=== PATIENT | female | born 1940 | race African-American/Black ===

== ENCOUNTER 2016-11-05 13:11 | Inpatient (IN) | payer MEDICARE, MEDICAID ==
[~2016-11-05] VITALS: Ht 165.1 cm; Wt 113.4 kg
[~2016-11-05 13:11] MED LIST: ACETAMINOPHEN-1 EAC1 GT; ACETAMINOPHEN650 M2 GT; AMIODARONE HCL400 M1 GT; BACLOFEN10 MG GT; BISACODYL5 MG RC; CALCIUM500 M3 GT; CARBAMAZEP200 MG/10 GT; COLACE100 MG GT; DAILY VITAMIN1 EAC4 GT; DILAUDID 11 MG/1 ML IJ; DILAUDID2 MG SUBQ; FOLIC ACID1 MG GT; GABAPENTIN100 MG GT; HEPARIN SO1000 UNIT3 SQ; HYDRALAZINE HCL10 MG GT; ISOSOURCE 1.51000 M1 GT; KLONOPIN0.5 MG GT; LACTULOSE20 GM/301 GT; LEVOTHYROXINE50 MCG GT; LIPITOR20 MG GT; LYRICA50 MG GT; LYRICA50 MG ORAL; MAALOX MAXIMUM355 M1 GT; METOPROLOL TART25 MG ORAL; MINERALS GT; MIRTAZAPINE15 MG GT; MOM30 ML ORAL; MULTIVIT GT; MULTIVITAMINS1 EAC8 GT; NEURONTIN800 MG GT; NOVOLOG100 UNIT/3 SUBQ; PEPCID20 MG GT; PERCOCET 10-321 EACH GT; PROMOD946 ML GT; ROBITUSSIN100 MG/52 ORAL; SENNA8.6 M2 GT; TEGRETOL200 MG GT; TRAMADOL HCL50 MG GT; TRAZODONE HCL100 MG GT; ZANTAC150 MG GT; [UNRECOGNIZED DRUG - CODE] SQ; viscous lidocaine
[2016-11-05 13:30] VITALS: BP 115/95
[2016-11-05 14:00] VITALS: BP 97/58
[2016-11-05 14:40] LABS: BASOPHILS % (AUTO) 0.6 % (0.0-2.0); EOSINOPHILS % (AUTO) 3.2 % (0.0-3.0); LYMPHOCYTES % (AUTO) 9.1 % (20.0-45.0); MEAN CORPUSCULAR HEMOGLOBIN 30.9 PG (27.0-31.0); MEAN CORPUSCULAR HGB CONC 31.3 G/DL (32.0-36.0); MEAN CORPUSCULAR VOLUME 99 FL (80-99); MEAN PLATELET VOLUME 6.5 FL (6.5-10.1); MONOCYTES % (AUTO) 12.2 % (1.0-10.0); PLATELET COUNT 159 K/UL (150-450); RED BLOOD COUNT 4.11 M/UL (4.20-5.40); RED CELL DISTRIBUTION WIDTH 13.8 % (11.6-14.8); WHITE BLOOD COUNT 8.5 K/UL (4.8-10.8)
[2016-11-05 14:50] LABS: INR 1.1 (0.9-1.1); PROTHROMBIN TIME 11.4 SEC (9.30-11.50)
[2016-11-05 14:56] LABS: ALANINE AMINOTRANSFERASE 6 U/L (3-33); ALBUMIN/GLOBULIN RATIO 1.3 (1.0-2.7); ALCOHOL < 10 mg/dL; ANION GAP 18 (5-15); ASPARTATE AMINO TRANSFERASE 11 U/L (5-40); CALCIUM 8.8 mg/dL (8.6-10.2); CARBON DIOXIDE 23 mEQ/L (20-30); CHLORIDE 98 mEQ/L (98-107); CHOLESTEROL 189 mg/dL (< 200); CHOLESTEROL/HDL RATIO 4.2 (3.3-4.4); HEMOLYSIS 14; LDL CHOLESTEROL (CALC.) 92 mg/dL (60-99); POTASSIUM 4.1 mEQ/L (3.4-4.9); SODIUM 139 mEQ/L (135-145); TROPONIN I < 0.30 ng/mL (<=0.30)
[2016-11-05 15:05] LABS: APPEARANCE,URINE SLIGHTLY CLOUDY; KETONES,URINE 1+ (NEGATIVE); LEUKOCYTE ESTERASE ,URINE 3+ (NEGATIVE); NITRITE,URINE NEGATIVE (NEGATIVE); PH,URINE 8 (4.5-8.0); PROTEIN,URINE 3+ (NEGATIVE); UROBILINOGEN,URINE NORMAL MG/DL (0.0-1.0)
[2016-11-05 15:23] LABS: AMORPHOUS SEDIMENT,UR MODERATE /LPF; BACTERIA,URINE MANY /HPF; SQUAMOUS EPITHELIAL CELL,UR FEW /LPF (NONE/OCC); WBC,URINE 15-20 /HPF (0 - 2)
[2016-11-05] MEDS ORDERED: POTASSIUM CHLO20 ME1 GT (15:37)
[2016-11-05] MEDS ORDERED: MIRALAX17 G2 GT (15:37)
[2016-11-05] MEDS ORDERED: PRO-STAT LIQUID30 ML GT (15:37)
[2016-11-05] MEDS ORDERED: UTI-STAT L3875 MG/31 GT (15:37)
[2016-11-05] MEDS ORDERED: DILAUDID1 MG/1 ML SUBQ (15:37)
[2016-11-05] MEDS ORDERED: VITAMIN C500 M1 GT (15:37)
[2016-11-05] MEDS ORDERED: CYMBALTA30 MG GT (15:37)
[2016-11-05] MEDS ORDERED: CARBAMAZEPINE200 MG GT (15:37)
[2016-11-05] MEDS ORDERED: ASPIR 8181 MG GT (15:37)
[2016-11-05] MEDS ORDERED: BACLOFEN10 MG GT (15:37)
[2016-11-05] MEDS ORDERED: NORCO 10-325 T1 EACH GT (15:37)
[2016-11-05] MEDS ORDERED: ZOFRAN4 M1 GT (15:37)
[2016-11-05] MEDS ORDERED: FERROUS SULFAT325 MG GT (15:37)
[2016-11-05] MEDS ORDERED: CARAFATE1 G1 GT (15:37)
[2016-11-05] MEDS ORDERED: PERCOCET 10-321 EACH GT (15:37)
[2016-11-05] MEDS ORDERED: METOPROLOL TART25 MG GT (15:37)
[2016-11-05] MEDS ORDERED: IPRATROPIU0.2 MG/1 M HHN (15:37)
[2016-11-05] MEDS ORDERED: FOLIC ACID1 MG GT (15:37)
[2016-11-05 15:46] LABS: ERYTHROCYTE SEDIMENTATION RATE 80 MM/HR (0-30)
[2016-11-05] MEDS ORDERED: cefTRIAXone 1 GM in D5W 55 ML IVPB ONE (16:00)
--- NOTE | 2016-11-05 16:12 | Emergency Room Report ---
History of Present Illness General Chief Complaint: Stroke Symptoms Source: Medical Record, EMS Present Illness HPI Paramedics were called because of ALOC. Patient was minimally responsive and unable to respond to commands. Allegedly patient usually ambulatory. Accucheck in field normal. This occurred 1 hour prior to presentation here. No vomiting or fever. Patient with h/o seizure and stroke in past (per records). Alleged prior R weakness. Post G tube insertion. Diabetic. Unable to answer other questions. Allergies: Coded Allergies: LANSOPRAZOLE (Unverified Allergy, Severe, 01/11/13) BROMFENAC (Verified Allergy, Unknown, 12/03/08) DICLOFENAC (Verified Allergy, Unknown, 12/03/08) FENOPROFEN (Verified Allergy, Unknown, 12/03/08) FLURBIPROFEN (Verified Allergy, Unknown, 12/03/08) IBUPROFEN (Verified Allergy, Unknown, 12/03/08) INDOMETHACIN (Verified Allergy, Unknown, 12/03/08) KETOROLAC (Verified Allergy, Unknown, 12/03/08) MISOPROSTOL (Verified Allergy, Unknown, 12/03/08) MORPHINE (Verified Allergy, Unknown, 12/03/08) NAPROXEN (Verified Allergy, Unknown, 12/03/08) PIROXICAM (Verified Allergy, Unknown, 12/03/08) SULINDAC (Verified Allergy, Unknown, 12/03/08) No Known Allergies (Verified , 12/03/08) Patient History Limited by: medical condition Past Medical History: see triage record, old chart reviewed Past Surgical History: pacemaker Social History Narrative SNF Reviewed Nursing Documentation: PMH: Agreed, PSxH: Agreed Nursing Documentation-PMH Past Medical History: No History, Except For Hx Cardiac Problems: Yes - CHF Hx Hypertension: Yes Hx Pacemaker: Yes Hx Asthma: Yes Hx COPD: Yes Hx Diabetes: Yes Hx Cancer: No Hx Gastrointestinal Problems: Yes - g tube GERD Hx Neurological Problems: Yes Hx Cerebrovascular Accident: Yes Hx Dementia: Yes Hx Seizures: Yes Hx Peripheral Neuropathy: Yes Hx Weakness: Yes - RIGHT SIDED Review of Systems All Other Systems: limited Physical Exam Vital Signs Date Time Temp Pulse Resp B/P Pulse Ox O2 Delivery O2 Flow Rate FiO2 11/05/16 13:18 98.4 72 16 97/52 96 Room Air Sp02 EP Interpretation: reviewed, normal General Appearance: no apparent distress, lethargic, Chronically Ill Head: normocephalic, atraumatic Eyes: bilateral eye PERRL, bilateral eye normal inspection ENT: moist mucus membranes - poor dentition Neck: supple Respiratory: lungs clear, normal breath sounds Cardiovascular #1: regular rate, rhythm Cardiovascular #2: 2+ radial (R) Gastrointestinal: normal inspection, normal bowel sounds, non tender, no mass, non-distended, overweight Musculoskeletal: back normal, other - decreased ROM Neurologic: DTRs symmetric - decreased, sensory intact, motor weakness - R>>L hardly able to lift R hand, able to grasp with L. Not move LE, other - lethargic Psychiatric: other - lethargic but looks towards examiner Skin: normal inspection, warm/dry Procedures Critical Care Time Critical Care Time Total Critical Care Time: 30 min bedside evaluation and treatment excludes procedures (EKG). Reason for critical care: code stroke, repeated neurologic evaluations Possible complications: hypotension, hypertension, ID, shock, arrhythmias, metabolic acidosis, end organ damage, respiratory failure. Interventions: CT, hydration, antibiotics, consultation with PMD and radiologist. Course: Patient with ALOC and R weakness, Code stroke called. Maintaining airway. CT negative. Due to improving mentation, h/o seizures and improving strength (review of records with R weakness prior), TPA not indicated. UTI - antibiotics indicated. Continued improvement with discussion with PMD and family. Admitted telemetry. Consultations: nursing staff, EMS, family, radiologist, PMD Performed by: Dr. Richards Tolerated well condition = serious Medical Decision Making Diagnostic Impression: Primary Impression: Altered mental status Qualified Codes: R40.4 - Transient alteration of awareness Additional Impressions: Residual R weakness UTI (urinary tract infection) Qualified Codes: N30.00 - Acute cystitis without hematuria ER Course Patient with ALOC with R weakness. DDx: CVA, seizure, electrolyte abnormality, medication excess, arrhythmia amongst others. Exam with R weakness. "CODE Stroke" called. Eval with CT, CXR, EKG, labs. Treatment with cardiac monitoring. CT and EKG unremarkable. Pyuria. Re-evaluation with patient more responsive. Still with R weakness. As improving mentation, not candidate for TPA. Consideration for seizure with Sunil 's paralysis, arrhythmia, UTI/sepsis. Improving mentation with treatment. Discussed with Dr. Edwards and family. Admit telemetry Dr. Edwards. Laboratory Tests Test 11/05/16 14:25 11/05/16 14:52 White Blood Count 8.5 K/UL (4.8-10.8) Red Blood Count 4.11 M/UL (4.20-5.40) L Hemoglobin 12.7 G/DL (12.0-16.0) Hematocrit 40.5 % (37.0-47.0) Mean Corpuscular Volume 99 FL (80-99) Mean Corpuscular Hemoglobin 30.9 PG (27.0-31.0) Mean Corpuscular Hemoglobin Concent 31.3 G/DL (32.0-36.0) L Red Cell Distribution Width 13.8 % (11.6-14.8) Platelet Count 159 K/UL (150-450) Mean Platelet Volume 6.5 FL (6.5-10.1) Neutrophils (%) (Auto) 75.0 % (45.0-75.0) Lymphocytes (%) (Auto) 9.1 % (20.0-45.0) L Monocytes (%) (Auto) 12.2 % (1.0-10.0) H Eosinophils (%) (Auto) 3.2 % (0.0-3.0) H Basophils (%) (Auto) 0.6 % (0.0-2.0) Erythrocyte Sedimentation Rate 80 MM/HR (0-30) H Prothrombin Time 11.4 SEC (9.30-11.50) Prothrombin Time INR 1.1 (0.9-1.1) PTT 27 SEC (23-33) Sodium Level 139 mEQ/L (135-145) Potassium Level 4.1 mEQ/L (3.4-4.9) Chloride Level 98 mEQ/L (98-107) Carbon Dioxide Level 23 mEQ/L (20-30) Anion Gap 18 (5-15) H Blood Urea Nitrogen 19 mg/dL (7-23) Creatinine 1.0 mg/dL (0.5-0.9) H Estimate Glomerular Filtration Rate mL/min (>60) Glucose Level 110 mg/dL (74-106) H Calcium Level 8.8 mg/dL (8.6-10.2) Magnesium Level 2.0 mg/dL (1.7-2.5) Total Bilirubin 0.3 mg/dL (0.0-1.2) Aspartate Amino Transferase (AST) 11 U/L (5-40) Alanine Aminotransferase (ALT) 6 U/L (3-33) Alkaline Phosphatase 137 U/L (35-104) H Total Creatine Kinase 28 U/L (26-140) Troponin I < 0.30 ng/mL (<=0.30) Total Protein 6.0 g/dL (6.6-8.7) L Albumin 3.4 g/dL (3.5-5.2) L Globulin 2.6 g/dL Albumin/Globulin Ratio 1.3 (1.0-2.7) Triglycerides Level 260 mg/dL (< 150) H Cholesterol Level 189 mg/dL (< 200) LDL Cholesterol 92 mg/dL (60-99) HDL Cholesterol 45 mg/dL (> 60) Cholesterol/HDL Ratio 4.2 (3.3-4.4) Thyroid Stimulating Hormone (TSH) 1.030 uIU/mL (0.300-4.500) Carbamazepine (Tegretol) Level 10.3 ug/mL (4.0-12.0) Serum Alcohol < 10 mg/dL Urine Color Yellow Urine Appearance Slightly cloudy Urine pH 8 (4.5-8.0) Urine Specific [place] 1.010 (1.005-1.035) Urine Protein 3+ (NEGATIVE) H Urine Glucose (UA) Negative (NEGATIVE) Urine Ketones 1+ (NEGATIVE) H Urine Occult Blood 2+ (NEGATIVE) H Urine Nitrite Negative (NEGATIVE) Urine Bilirubin Negative (NEGATIVE) Urine Urobilinogen Normal MG/DL (0.0-1.0) Urine Leukocyte Esterase 3+ (NEGATIVE) H Urine RBC 5-10 /HPF (0 - 2) H Urine WBC 15-20 /HPF (0 - 2) H Urine Squamous Epithelial Cells Few /LPF (NONE/OCC) Urine Amorphous Sediment Moderate /LPF (NONE) H Urine Bacteria Many /HPF (NONE) H Urine Opiates Screen Positive (NEGATIVE) H Urine Barbiturates Screen Negative (NEGATIVE) Phencyclidine (PCP) Screen Negative (NEGATIVE) Urine Amphetamines Screen Positive (NEGATIVE) H Urine Benzodiazepines Screen Negative (NEGATIVE) Urine Cocaine Screen Negative (NEGATIVE) Urine Marijuana (THC) Screen Negative (NEGATIVE) EKG Diagnostic Results Rate: normal Rhythm: NSR ST Segments: no acute changes Rhythm Strip Diag. Results EP Interpretation: yes Rhythm: NSR, no PVC's, no ectopy Chest X-Ray Diagnostic Results EP Interpretation: Yes Findings: no consolidation, no effusion, no pneumothorax, other - dilated loops of bowel Number of Views: 1 CT/MRI/US Diagnostic Results CT/MRI/US Diagnostic Results : Imaging Test Ordered: head Impression "normal" Last Vital Signs Date Time Temp Pulse Resp B/P Pulse Ox O2 Delivery O2 Flow Rate FiO2 11/05/16 16:50 96.6 68 18 117/66 97 Room Air Status: improved Disposition: ADMITTED INPATIENT Condition: Serious Referrals: TRES EDWARDS (PCP) Ayo Richards M.D. November 05, 2016 16:12
[2016-11-05] MEDS ORDERED: Bisacodyl EC 5mg tab ORAL PRN ×2 (16:15→22:22)
[2016-11-05] MEDS ORDERED: Ipratropium 0.02% Inh Soln 2.5ml UD HHN PRN (16:15)
[2016-11-05] MEDS ORDERED: Lactulose 20gm/30ml UDC GT PRN ×2 (16:15)
[2016-11-05] MEDS ORDERED: Norco 10mg/325mg tab GT PRN (16:15)
[2016-11-05] MEDS ORDERED: Docusate 100mg/10ml Liq GT PRN ×2 (16:30→22:17)
[2016-11-05 16:50] VITALS: BP 117/66
[2016-11-05] MEDS: NovoLOG Insulin Flexpen SUBQ SCH ×2 (17:30→21:00)
[2016-11-05] MEDS: carBAMazepine 200mg tab GT SCH ×2 (17:51→21:40)
[2016-11-05] MEDS: Sucralfate 1gm tab GT SCH ×2 (17:51→21:40)
[2016-11-05] MEDS ORDERED: Lyrica 50mg cap ORAL SCH (18:00)
[2016-11-05 20:00] VITALS: BP 152/114
[2016-11-05] MEDS ORDERED: Metoprolol 25mg tab GT SCH (21:00)
[2016-11-05] MEDS: Piperacillin/Tazobactam 3.375 GM in D5W 110 ML IVPB SCH ×2 (21:41→22:00)
[2016-11-05] MEDS: Heparin 5000 units/ml inj SUBQ SCH (21:46)
[2016-11-05] MEDS ORDERED: Docusate 100mg/10ml Liq ORAL PRN (21:53)
[2016-11-05] MEDS ORDERED: carBAMazepine 200mg tab ORAL SCH (21:53)
[2016-11-05] MEDS ORDERED: Metoprolol 25mg tab ORAL SCH (21:55)
[2016-11-05] MEDS ORDERED: Norco 10mg/325mg tab ORAL PRN (21:55)
[2016-11-05] MEDS ORDERED: Sucralfate 1gm tab ORAL SCH (22:14)
[2016-11-06] VITALS: BP 105/61
[2016-11-06 04:00] VITALS: BP 121/63
[2016-11-06] MEDS: NovoLOG Insulin Flexpen SUBQ SCH ×4 (06:00→21:19)
[2016-11-06] MEDS: Piperacillin/Tazobactam 3.375 GM in D5W 110 ML IVPB SCH ×3 (06:00→21:36)
[2016-11-06 07:55] VITALS: BP 125/68
[2016-11-06] MEDS ORDERED: Heparin 2000 units/Ns 1000ml INJ PRN (08:30)
[2016-11-06] MEDS ORDERED: Lidocaine 1% Plain 30 ml INJ PRN (08:30)
[2016-11-06] MEDS ORDERED: Sodium Bicarbonate 4% 2.4meq/5ml vial INJ PRN (08:30)
[2016-11-06] MEDS ORDERED: Lactulose 20gm/30ml UDC GT PRN (09:00)
[2016-11-06] MEDS: Ascorbic Acid 500mg tab GT SCH (10:16)
[2016-11-06] MEDS: Milk of Magnesia 30ml Ud GT SCH (10:16)
[2016-11-06] MEDS: Aspirin Baby 81mg GT SCH (10:16)
[2016-11-06] MEDS: Miralax 17gm pkt GT SCH (10:17)
[2016-11-06] MEDS: Ferrous Sulfate 300 MG/5 ML UDC ORAL SCH (10:17)
[2016-11-06] MEDS: Sucralfate 1gm tab GT SCH ×4 (10:17→21:17)
[2016-11-06] MEDS: KCl 10% 20 mEq/15ml liquid GT SCH (10:17)
[2016-11-06] MEDS: DULoxetine 30mg cap ORAL SCH (10:17)
[2016-11-06] MEDS: carBAMazepine 200mg tab GT SCH ×4 (10:18→21:18)
[2016-11-06] MEDS: Metoprolol 25mg tab GT SCH ×2 (10:18→21:17)
[2016-11-06] MEDS: Amiodarone 200mg tab GT SCH (10:18)
[2016-11-06] MEDS: Heparin 5000 units/ml inj SUBQ SCH ×3 (10:19→21:18)
[2016-11-06] MEDS: Dyna-Hex 2% Top Sol 8oz TOPIC SCH (12:04)
[2016-11-06 12:06] VITALS: BP 111/67
[2016-11-06 15:56] VITALS: BP 111/61
[2016-11-06] MEDS ORDERED: NS 275ml ONE (16:55)
[2016-11-06] MEDS ORDERED: NS Irrig 1000ml ONE (16:55)
[2016-11-06] MEDS ORDERED: Tubing IV Secondary IV ONE (16:55)
[2016-11-06] MEDS: Norco 10mg/325mg tab GT PRN (19:57)
[2016-11-06 20:00] VITALS: BP 130/69
--- NOTE | 2016-11-06 21:45 | History and Physical Report ---
DATE OF ADMISSION: 11/05/2016 CHIEF COMPLAINT: Encephalopathy, sepsis and urinary tract infection. HISTORY OF PRESENT ILLNESS: The patient is a pleasant 76-year-old female, well-known to me. She has a history of severe trigeminal neuralgia, stroke and hypertension. She has a history of conduction system disease status post pacemaker. She has a history of dysphagia. She was transferred from a nursing home facility with complaints of altered mental status. According to the nursing staff, the patient was poorly responsive and nonverbal at the dining room. She was brought to the emergency room. On evaluation there, CT scan of the head was negative. She was noted to have UTI. She was hydrated aggressively with reports of any fevers or chills. No seizures. PAST MEDICAL HISTORY: As above. PAST SURGICAL HISTORY: Includes a pacemaker. CURRENT MEDICATIONS: Reconciled and reviewed. ALLERGIES: Include diclofenac, Indocin, Prevacid, , morphine, naproxen, and sulindac. FAMILY HISTORY: Noncontributory. SOCIAL HISTORY: Negative for tobacco, ethanol, or drugs. REVIEW OF SYSTEMS: General: No fever or chills. HEENT: No headaches or visual changes. Cardiopulmonary: No chest pain or shortness of breath. Gastrointestinal: No nausea or vomiting. Genitourinary: No urgency or frequency. Musculoskeletal: No dependent swelling. No positive history of seizures. PHYSICAL EXAMINATION: VITAL SIGNS: Temperature 97.7 degrees, pulse 89, blood pressure 125/68, and respirations 18. GENERAL: The patient is a well-developed, in no apparent distress. She is awake, alert, and oriented x4. HEENT: Her pupils are equal, round, and reactive to light. Oropharynx is clear. NECK: Supple. HEART: Regular rate and rhythm. LUNGS: Clear. ABDOMEN: Soft, nontender and nondistended. EXTREMITIES: Without clubbing or cyanosis. The patient has right-sided weakness, which is chronic. LABORATORY DATA: White count 8, hemoglobin 12, hematocrit 40, and platelets 159,000. Sodium 139 and creatinine is 1. Potassium is 4.1. Troponin was negative. Coags normal. UA showed 15 to 20 WBCs. ASSESSMENT: This is an elderly female with a history of stroke, encephalopathy, trigeminal neuralgia, sepsis, urinary tract infection, seizure disorder and history of conduction system disease status post pacemaker. PLAN: IV antibiotics, aggressive fluid resuscitation, Neurologic consultation and Cardiology consultation. We will follow pending cultures. Continue DVT and stress ulcer prophylaxis. Plan of care was discussed with the patient as well as the patient's daughter. Omar Fournier M.D. DR: HETAL JOB#: [id number] CC:
[2016-11-07] VITALS: BP 108/60
[2016-11-07] MEDS: Norco 10mg/325mg tab GT PRN ×5 (00:16→20:33)
[2016-11-07 03:49] VITALS: BP 110/59
--- NOTE | 2016-11-07 05:00 | Progress Note ---
DATE: 11/06/2016 CARDIOLOGY PROGRESS NOTE SUBJECTIVE: The patient is more alert. Still not at her baseline, withdrawn in this regard. The patient has been pancultured and started on IV antibiotics and IV fluid hydration overnight. She remains afebrile. OBJECTIVE: VITAL SIGNS: Blood pressure 130/69, pulse 91, respiratory rate 20, and afebrile. Monitored rhythm, sinus. GENERAL: Awake and alert. HEENT: Mucous membranes dry. NECK: Supple. LUNGS: Clear. CARDIAC: Regular. Normal S1, S2. Fourth heart sound. ABDOMEN: Soft. EXTREMITIES: No edema, right-sided weakness mild left subclavian area has a small event recorder under the skin. LABORATORY DATA: TSH 1.0. IMPRESSION: 1. Urinary tract infection. 2. Sepsis. 3. Hypovolemia and dehydration. 4. Indwelling event recorded nonfunctional, stable cardiac rhythm. 5. Mild protein-calorie malnutrition. 6. Hypertensive heart disease. 7. Paroxysmal atrial fibrillation. PLAN: 1. Hydration. 2. Empiric antibiotics pending final cultures. 3. DVT prophylaxis. 4. Continue low-dose beta-regan, titrate based on clinical parameters. 5. Maintenance dose amiodarone for suppression of atrial tachyarrhythmias and suppression of atrial fibrillation. 6. Continue maintenance dose of levothyroxine. 7. No indication for pacemaker. No indication to explant event recorder at this time. Ayo Leone M.D. DR: LINA JOB#: [id number] CC:
[2016-11-07] MEDS: Piperacillin/Tazobactam 3.375 GM in D5W 110 ML IVPB SCH ×3 (05:43→22:13)
[2016-11-07] MEDS: NovoLOG Insulin Flexpen SUBQ SCH ×4 (06:02→21:00)
[2016-11-07 08:05] VITALS: BP 166/90
[2016-11-07] MEDS: Aspirin Baby 81mg GT SCH (08:59)
[2016-11-07] MEDS: DULoxetine 30mg cap ORAL SCH (08:59)
[2016-11-07] MEDS: carBAMazepine 200mg tab GT SCH ×4 (09:00→21:17)
[2016-11-07] MEDS: Ascorbic Acid 500mg tab GT SCH (09:00)
[2016-11-07] MEDS: Milk of Magnesia 30ml Ud GT SCH (09:00)
[2016-11-07] MEDS: Sucralfate 1gm tab GT SCH ×4 (09:00→21:09)
[2016-11-07] MEDS: Miralax 17gm pkt GT SCH (09:00)
[2016-11-07] MEDS: Ferrous Sulfate 300 MG/5 ML UDC ORAL SCH (09:01)
[2016-11-07] MEDS: Metoprolol 25mg tab GT SCH ×2 (09:01→21:10)
[2016-11-07] MEDS: KCl 10% 20 mEq/15ml liquid GT SCH (09:01)
[2016-11-07] MEDS: Heparin 5000 units/ml inj SUBQ SCH ×2 (09:02→21:19)
[2016-11-07] MEDS: Amiodarone 200mg tab GT SCH (09:02)
[2016-11-07] MEDS: Dyna-Hex 2% Top Sol 8oz TOPIC SCH (09:02)
--- NOTE | 2016-11-07 10:51 | Diagnostic Imaging Report ---
Indication: Shortness of breath Technique: One view of the chest Comparison: 07/16/2013 Findings: Monitor device again projects over the left chest. There is elevation left hemidiaphragm with atelectatic change of the left lung base. Lungs and pleural spaces are otherwise clear. The heart is borderline enlarged. The aorta is tortuous and ectatic Impression: No definite acute process. Findings as noted
[2016-11-07 11:23] VITALS: BP 144/78
--- NOTE | 2016-11-07 14:27 | Wound Care Consultation ---
Wound Assessment Wound Assessment #1: Wound Present on Admission: Yes New Wound: No Status Change of Wound: No Wound Location Body Site Modif: right Wound Location Body Site: trochanter Wound Type: scar Jhonatan Test: Does not Jhonatan Wound Thickness: Full Thickness - scar tissue Wound Length: 2.5 Wound Width: 2.0 Percent of Wound [place]/Red: 100 Wound Drainage Amount: None Wound Drainage Odor: None/Absent Tissue Surrounding Wound: Intact Wound General Appearance: Asymptomatic Wound Assessment #2: Wound Number: #2 Wound Present on Admission: Yes New Wound: No Status Change of Wound: No Wound Location Body Site Modif: right Wound Location Body Site: ischial tuberosity Wound Type: scar Jhonatan Test: Does not Jhonatan Wound Thickness: Full Thickness - scar tissue Wound Length: 2.0 Wound Width: 1.5 Percent of Wound [place]/Red: 100 Wound Drainage Amount: None Wound Drainage Odor: None/Absent Tissue Surrounding Wound: Intact Wound General Appearance: Asymptomatic, Reddened Wound Comment Full thickness scar tissue on right trochanter and right ischial tuberosity Recommendation -Keep clean and dry -Turn and reposition -Low air loss SPR mattress -Optimize nutrition -Offload both heels -Heel protector on both heels -Assess and f/u accordingly for any changes SAMUEL RODRIGUEZ RN November 07, 2016 14:27
[2016-11-07] MEDS ORDERED: Hydromorphone 0.5mg/0.5ml inj IVP PRN (15:15)
--- NOTE | 2016-11-07 15:15 | General Progress Note ---
Assessment/Plan Problem List: (1) Altered mental status (2) Hyponatremia ICD Codes: E87.1 - Hyponatremia SNOMED: 23288342 (3) Seizure disorder, secondary ICD Codes: G40.909 - Seizure disorder, secondary SNOMED: 889788790 (4) Sepsis ICD Codes: A41.9 - Sepsis SNOMED: 41966098 (5) UTI (urinary tract infection) ICD Codes: N39.0 - Urinary tract infection, site not specified SNOMED: 03911180 Qualifiers: Qualified Codes: N30.00 - Acute cystitis without hematuria Status: stable Assessment/Plan cont iv abx pain rx adjusted sz rx repeat tox screen- ?positive ampghetamines d/w pt poc Subjective ROS Limited/Unobtainable: No Constitutional: Reports: malaise, weakness HEENT: Reports: no symptoms Cardiovascular: Reports: no symptoms Respiratory: Reports: no symptoms Gastrointestinal/Abdominal: Reports: no symptoms Genitourinary: Reports: no symptoms Neurologic/Psychiatric: Reports: pre-existing deficit Endocrine: Reports: no symptoms Hematologic/Lymphatic: Reports: no symptoms Allergies: Coded Allergies: LANSOPRAZOLE (Unverified Allergy, Severe, 01/11/13) BROMFENAC (Verified Allergy, Unknown, 12/03/08) DICLOFENAC (Verified Allergy, Unknown, 12/03/08) FENOPROFEN (Verified Allergy, Unknown, 12/03/08) FLURBIPROFEN (Verified Allergy, Unknown, 12/03/08) IBUPROFEN (Verified Allergy, Unknown, 12/03/08) INDOMETHACIN (Verified Allergy, Unknown, 12/03/08) KETOROLAC (Verified Allergy, Unknown, 12/03/08) MISOPROSTOL (Verified Allergy, Unknown, 12/03/08) MORPHINE (Verified Allergy, Unknown, 12/03/08) NAPROXEN (Verified Allergy, Unknown, 12/03/08) PIROXICAM (Verified Allergy, Unknown, 12/03/08) SULINDAC (Verified Allergy, Unknown, 12/03/08) No Known Allergies (Verified , 12/03/08) All Systems: reviewed and negative except above Subjective c/o generalized pain. mental status back to baseline. no chest pain no sob. Objective Last 24 Hour Vital Signs Date Time Temp Pulse Resp B/P Pulse Ox O2 Delivery O2 Flow Rate FiO2 11/07/16 14:00 97.1 11/07/16 12:00 79 11/07/16 11:23 97.1 81 18 144/78 99 Room Air 11/07/16 09:01 94 166/90 11/07/16 08:05 97.3 94 18 166/90 100 Room Air 11/07/16 08:00 96 11/07/16 07:36 97 20 Room Air 21 11/07/16 04:00 68 11/07/16 03:49 98.1 66 18 110/59 90 Room Air 11/07/16 00:00 97.5 74 20 108/60 100 Room Air 21 11/07/16 00:00 70 11/06/16 21:17 91 130/69 11/06/16 20:00 97.7 91 20 130/69 100 Room Air 21 11/06/16 20:00 90 11/06/16 19:30 89 20 Room Air 21 11/06/16 16:00 77 11/06/16 15:56 99.0 75 20 111/61 99 Room Air Intake and Output 11/06/16 11/07/16 19:00 07:00 Intake Total 230.0 ml 335.0 ml Output Total 450 ml 600 ml Balance -220.0 ml -265.0 ml Intake Oral 120 ml Free Water 225 ml IV Total 110.0 ml 110.0 ml Output Urine Total 450 ml 600 ml # Bowel Movements 1 1 Laboratory Tests 11/07/16 10:00: Opiates Screen [Pending], Oxycodone Level [Pending], Blood Methadone Screen [ Pending], Blood Propoxyphene Screen [Pending], Blood Barbiturates Screen [ Pending], Phencyclidine (PCP) Screen [Pending], Amphetamines Screen [Pending], Benzodiazepines Screen [Pending], Blood Cocaine/Metabolite Screen [Pending], Marijuana (THC) Screen [Pending], Blood Drug Screen Comment [Pending] Height (Feet): 5 Height (Inches): 5.00 Weight (Pounds): 250 General Appearance: WD/WN, alert Neck: supple Cardiovascular: regular rhythm Respiratory/Chest: lungs clear Abdomen: normal bowel sounds, non tender, soft Edema: no edema noted Arm (L), no edema noted Arm (R), no edema noted Leg (L), no edema noted Leg (R), no edema noted Pedal (L), no edema noted Pedal (R), no edema noted Generalized Neurologic: weatherization director II-XII grossly normal, motor weakness - left sided weakness TRES EDWARDS November 07, 2016 15:15
[2016-11-07 15:22] VITALS: BP 133/82
--- NOTE | 2016-11-07 17:02 | Cardiology Report ---
APPROVED REPORT EKG Measurement Heart [id number] Normal sinus rhythm Normal ECG
--- NOTE | 2016-11-07 17:45 | Consultation ---
DATE OF CONSULTATION: 11/07/2016 INFECTIOUS DISEASE CONSULTATION CONSULTING PHYSICIAN: Moris Jefferson M.D. PRIMARY ATTENDING: Omar Fournier M.D. This consult is for coverage of Dr. Woodruff. REASON FOR CONSULTATION: UTI. HISTORY OF PRESENT ILLNESS: This 76-year-old, female admitted on 11/05/2016 from custodial facility because of altered mental status, and the patient was nonresponsive. PAST MEDICAL HISTORY: Significant hypertension, diabetes mellitus, history of pacemaker, COPD, and dementia. ALLERGIES: Diclofenac, fenoprofen, ibuprofen, indomethacin, ketorolac, misoprostol, and morphine. MEDICATIONS: The patient is getting amiodarone, vitamin C, aspirin, Cymbalta, folic acid, Colace, carbamazepine, sucralfate, hydromorphone with Tylenol, levothyroxine, lactulose, heparin, metoprolol, ranitidine, Zosyn, gabapentin, and is on insulin. SOCIAL HISTORY: group home resident. No other history is obtainable per the patient. After admission, the patient had a PICC line placement. PHYSICAL EXAMINATION: VITAL SIGNS: Temperature 97.3, pulse 94, and blood pressure is 166/90. GENERAL APPEARANCE: In no acute distress, opens her eyes, nonverbal. HEAD AND NECK: [place] conjunctivae. HEART: S1 and S2. She has a pacemaker. LUNGS: Clear. ABDOMEN: Soft. EXTREMITIES: No edema. GENITOURINARY: Has López catheter. LABORATORY AND DIAGNOSTIC DATA: WBC 8.5, hemoglobin 12.7, hematocrit 40.5, and platelets are 159,000. Sodium 139, potassium 4.1, chloride 98, bicarbonate 23, BUN 19, creatinine 1, and glucose 110. Urine culture grew ESBL E. coli. CT scan of the head showed no acute change. The patient has right occipital craniotomy. Chest x-ray was also negative. IMPRESSION: 1. Urinary tract infection with Escherichia coli extended-spectrum beta-lactamase. 2. Altered mental status. 3. Diabetes mellitus. 4. Paroxysmal atrial fibrillation. 5. Hypertension. 6. Dementia. 7. Hypothyroidism. RECOMMENDATION: Continue with Zosyn. At the end of my exam, I thank Dr. Fournier for involving me in the care of this patient. Moris Jefferson M.D. DR: SAM JOB#: [id number] CC:
[2016-11-07 20:00] VITALS: BP 144/96
[2016-11-08] VITALS: BP 127/78
[2016-11-08] MEDS: Norco 10mg/325mg tab GT PRN ×3 (01:37→13:31)
--- NOTE | 2016-11-08 02:00 | Consultation ---
DATE OF CONSULTATION: 11/05/2016 CARDIOLOGY CONSULTATION: CONSULTING PHYSICIAN: Ayo Leone M.D. REQUESTING PHYSICIAN: Omar Fournier M.D. REASON FOR CONSULTATION: Altered mentation in the setting of implanted pacing device and cardiomyopathy. HISTORY OF PRESENT ILLNESS: This 76-year-old female residing at a residential facility was referred by the paramedics, because of unresponsiveness and transported to this emergency room, where she was assessed and evaluated, and Cardiology consultation subsequently requested. The patient was noted to be minimally responsive, unable to follow commands, and she has notably significant change in her baseline level of function. The patient was seen in the emergency room. She was started on IV fluids and pancultured. PAST MEDICAL HISTORY: 1. Hypertension with hypertensive heart disease. 2. Paroxysmal atrial fibrillation. 3. Conduction system disease of the heart. 4. Chronic diastolic congestive heart failure. 5. Left chest wall and planned to do event recorder now, nonfunctional. 6. Bronchospastic lung disease. 7. Type 2 diabetes mellitus. 8. Trigeminal neuralgia. 9. Chronic pain syndrome. 10. Gastroesophageal reflux disease. 11. Dysphagia with gastrostomy tube. 12. Cerebrovascular disease with right hemiparesis. 13. Peripheral neuropathy. 14. Seizure disorder. ALLERGIES: Allergies are multiple and include morphine, Naprosyn, misoprostol, Tapazole, ketorolac, Indocin, ibuprofen, diclofenac, and sulindac. FAMILY HISTORY: Noncontributory. MEDICATIONS: Prior to admission, reviewed and reconciled. SOCIAL HISTORY: Negative for smoking, alcohol, or substance abuse. REVIEW OF SYSTEMS: Cannot be obtained from the patient at this time. Available records are reviewed and pertinent data outlined above. It should also be noted that the patient has been known implanted recently event recorder in the left subclavian region. The device is no longer functional. It was implanted many years ago to assess for indication for permanent pacemaker with recent heart rate documented. The patient has remained with stable cardiac rhythm on antiarrhythmic therapy for a number of years. She has not had any documented indication for permanent pacemaker implant and the event recorder has not been removed and has not been in any need to do this due to her comorbidities. PHYSICAL EXAMINATION: GENERAL: Afebrile, blood pressure 97/52, pulse 72, and respiratory rate 16. HEENT: Temporal wasting. Pale conjunctivae. Oropharynx clear. Dry mucous membranes. NECK: Supple. LUNGS: Clear. No breast masses. Left chest wall palpable, event recorded. No skin breakdown. CARDIAC: Regular rhythm and rate. Normal S1 and S2 with a fourth heart sound. ABDOMEN: Soft and nontender. No guarding or rebound. EXTREMITIES: No edema. NEUROLOGIC: Right-sided weakness. G-tube intact. LABORATORY DATA: Sodium is 139, potassium 4.1, bicarbonate 22, BUN 19, creatinine 1, and glucose 110. Albumin 3.4. TSH 1.0. White count 8.5 and hemoglobin 12.7. Urinalysis with 15 to 20 white cells and many bacteria. Toxicology screen is notable for opiates and amphetamines. IMPRESSION: 1. Acute encephalopathy likely toxic and metabolic. 2. Urinary tract infection, possible sepsis. 3. Hypovolemia and dehydration. 4. Possible amphetamine use unlikely. 5. Paroxysmal atrial fibrillation, maintaining sinus rhythm. 6. Hypertensive heart disease. 7. Chronic diastolic congestive heart failure. 8. History of implanted event recorder, now nonfunctional. No indication previously occur or currently for permanent pacemaker implant. PLAN: 1. Panculture. 2. Hydration by IV route. 3. Empiric antibiotics. 4. Cautious use of gabapentin. 5. Seizure precautions. 6. Withdrawal precautions. 7. Repeat toxicology screen. 8. Maintenance dose amiodarone. 9. Titrate beta-regan. Ayo Leone M.D. DR: Leslee JOB#: [id number] CC: DARWIN
[2016-11-08 04:00] VITALS: BP 152/88
[2016-11-08] MEDS: Piperacillin/Tazobactam 3.375 GM in D5W 110 ML IVPB SCH (06:14)
[2016-11-08] MEDS: NovoLOG Insulin Flexpen SUBQ SCH ×3 (06:15→16:30)
--- NOTE | 2016-11-08 07:01 | Progress Note ---
DATE: 11/07/2016 CARDIOLOGY PROGRESS NOTE SUBJECTIVE: The patient is alert and interactive, still weak. OBJECTIVE: GENERAL: She is afebrile. VITAL SIGNS: Blood pressure 144/78 to 166/90, 80 to 97 heart rate, she is afebrile, and respiratory 18 to 20. NECK: Supple. LUNGS: Clear. CHEST WALL: With palpable recorder in the left subclavian region. CARDIAC: Regular rhythm and rate. Normal S1, S2 with a fourth heart sound. ABDOMEN: Soft. No edema. LABORATORY DATA: Urine toxicology screen was initially positive for amphetamines, but repeated is negative. IMPRESSION: 1. Urinary tract infection with sepsis. 2. Toxic and metabolic encephalopathy. 3. Hypovolemia and dehydration. 4. Paroxysmal atrial fibrillation. 5. Event recorder nonfunctional. No pacemaker. 6. Conduction system disease of the heart, asymptomatic. 7. Chronic diastolic congestive heart failure. 8. Hypertensive heart disease. 9. Chronic neuropathy with pain. PLAN: 1. Antimicrobials. 2. Maintenance dose amiodarone. 3. Continue current dose of beta-regan. 4. Seizure precautions and withdrawal precautions with high-dose gabapentin. 5. Consider additional IV fluid hydration if inadequate oral intake. Ayo Leone M.D. DR: Patrick JOB#: [id number] CC:
[2016-11-08 08:00] VITALS: BP 144/83
[2016-11-08] MEDS ORDERED: INVANZ1 GM IM (08:47)
[2016-11-08] MEDS: Ferrous Sulfate 300 MG/5 ML UDC ORAL SCH (09:29)
[2016-11-08] MEDS: Aspirin Baby 81mg GT SCH (09:30)
[2016-11-08] MEDS: DULoxetine 30mg cap ORAL SCH (09:30)
[2016-11-08] MEDS: KCl 10% 20 mEq/15ml liquid GT SCH (09:31)
[2016-11-08] MEDS: Amiodarone 200mg tab GT SCH (09:32)
[2016-11-08] MEDS: Metoprolol 25mg tab GT SCH (09:32)
[2016-11-08] MEDS: Milk of Magnesia 30ml Ud GT SCH (09:33)
[2016-11-08] MEDS: Dyna-Hex 2% Top Sol 8oz TOPIC SCH (09:33)
[2016-11-08] MEDS: Miralax 17gm pkt GT SCH (09:33)
[2016-11-08] MEDS: Sucralfate 1gm tab GT SCH ×2 (09:33→13:30)
[2016-11-08] MEDS: Ascorbic Acid 500mg tab GT SCH (09:33)
[2016-11-08] MEDS: Heparin 5000 units/ml inj SUBQ SCH (09:35)
[2016-11-08] MEDS: carBAMazepine 200mg tab GT SCH ×2 (09:37→13:30)
--- NOTE | 2016-11-08 10:34 | Infectious Diseases Prog Note ---
Assessment/Plan Assessment/Plan antibiotics : zosyn A 1. e.coli UTI 2. DM 3. HTN 4. atrial fibrillation P 1. continue zosyn 3 more days 2. will follow up cultures Subjective ROS Limited/Unobtainable: Yes Allergies: Coded Allergies: LANSOPRAZOLE (Unverified Allergy, Severe, 01/11/13) BROMFENAC (Verified Allergy, Unknown, 12/03/08) DICLOFENAC (Verified Allergy, Unknown, 12/03/08) FENOPROFEN (Verified Allergy, Unknown, 12/03/08) FLURBIPROFEN (Verified Allergy, Unknown, 12/03/08) IBUPROFEN (Verified Allergy, Unknown, 12/03/08) INDOMETHACIN (Verified Allergy, Unknown, 12/03/08) KETOROLAC (Verified Allergy, Unknown, 12/03/08) MISOPROSTOL (Verified Allergy, Unknown, 12/03/08) MORPHINE (Verified Allergy, Unknown, 12/03/08) NAPROXEN (Verified Allergy, Unknown, 12/03/08) PIROXICAM (Verified Allergy, Unknown, 12/03/08) SULINDAC (Verified Allergy, Unknown, 12/03/08) No Known Allergies (Verified , 12/03/08) Objective Vital Signs Last 24 Hour Vital Signs Date Time Temp Pulse Resp B/P Pulse Ox O2 Delivery O2 Flow Rate FiO2 11/08/16 09:32 100 144/83 11/08/16 08:00 98.2 100 19 144/83 100 Room Air 11/08/16 07:52 76 20 Room Air 11/08/16 04:47 98.0 11/08/16 04:00 98.0 88 19 152/88 99 Room Air 11/08/16 04:00 86 11/08/16 00:00 97.5 81 20 127/78 98 Room Air 11/08/16 00:00 63 11/07/16 21:10 88 144/96 11/07/16 20:00 97.3 88 21 144/96 98 Room Air 11/07/16 20:00 73 11/07/16 19:51 88 18 Room Air 21 11/07/16 16:00 82 11/07/16 15:22 97.3 91 18 133/82 100 Room Air 11/07/16 12:00 79 11/07/16 11:23 97.1 81 18 144/78 99 Room Air Height (Feet): 5 Height (Inches): 5.00 Weight (Pounds): 250 Respiratory/Chest: lungs clear Cardiovascular: normal rate, regular rhythm, no gallop/murmur Abdomen: soft, non tender, other - GT Extremities: no edema, other - left arm PICC Microbiology Date/Time Source Procedure Growth Status 11/05/16 15:00 Nasal Nares MRSA Culture - Final NO METHICILLIN RESISTANT STAPH AUREUS... Complete 11/05/16 14:52 Urine,Clean Catch Urine Culture - Final Escherichia Coli - Esbl Complete Laboratory Tests Test 11/07/16 18:30 Urine Opiates Screen Positive (NEGATIVE) H Urine Barbiturates Screen Negative (NEGATIVE) Phencyclidine (PCP) Screen Negative (NEGATIVE) Urine Amphetamines Screen Negative (NEGATIVE) Urine Benzodiazepines Screen Negative (NEGATIVE) Urine Cocaine Screen Negative (NEGATIVE) Urine Marijuana (THC) Screen Negative (NEGATIVE) CHAYA VELOZ Nov 08, 2016 10:34
[2016-11-08 12:00] VITALS: BP 141/96
[2016-11-08] MEDS ORDERED: Piperacillin/Tazobactam 3.375 GM in D5W 110 ML IVPB SCH (14:00)
--- NOTE | 2016-11-08 15:51 | Diagnostic Imaging Report ---
Indications: Right-sided weakness. History of seizure and stroke Technique: Spiral acquisitions obtained through the brain. Angled axial and coronal 5 x 5 mm slices were reconstructed. Total dose length product 1340 mGycm. CTDI vol(s) 70 mGy. Dose reduction achieved using automated exposure control Comparison: 11/05/2016 Findings: Again demonstrated is age-related enlargement of ventricles and extra-axial CSF spaces, as well as periventricular deep white matter ischemic change. No acute hemorrhage or edema. No mass effect nor midline shift. Again demonstrated is a right occipital craniotomy/craniectomy defect with overlying hardware. No underlying cerebellar encephalomalacia. Findings are unchanged when compared to the previous study. Impression: Chronic and age-related changes. Negative for acute intracranial bleed or mass effect or significant gear changer 3 days. Prior right occipital craniotomy/craniectomy The CT scanner at [facility] is accredited by the [employer] and the scans are performed using protocols designed to limit radiation exposure to as low as reasonably achievable to attain images of sufficient resolution adequate for diagnostic evaluation.
[2016-11-08 16:00] VITALS: BP 142/79
[2016-11-08] MEDS ORDERED: NS 275ml ONE (17:59)
[2016-11-08] MEDS ORDERED: Sterile Water Irrig 1000ml IRRIG ONE (17:59)
--- NOTE | 2016-11-08 22:30 | Discharge Summary ---
DATE OF ADMISSION: 11/05/2016 DATE OF DISCHARGE: 11/08/2016 ADMISSION DIAGNOSES: 1. Encephalopathy. 2. Sepsis. 3. History of stroke. 4. History of seizure disorder. 5. Urinary tract infection. DISCHARGE DIAGNOSES: 1. Encephalopathy. 2. Sepsis. 3. History of stroke. 4. History of seizure disorder. 5. Urinary tract infection. HOSPITAL COURSE: The patient is a very pleasant female who has had complaints of altered mental status. She was diagnosed with sepsis secondary to urinary tract infection. She received broad-spectrum antibiotics, which were later adjusted. Her mental status returned to normal after treatment of her urinary tract infection. On discharge, she was doing well. She will be discharged back to the senior living facility with five additional days of IV antibiotic therapy. DISCHARGE MEDICATIONS: Please see discharge medication list for discharge medications. DIET: Regular diet. ACTIVITY: Ad-rocky. Omar Fournier M.D. DR: RUBÉN JOB#: [id number] CC:
--- NOTE | 2016-11-08 23:45 | Progress Note ---
DATE: 11/08/2016 CARDIOLOGY PROGRESS NOTE: SUBJECTIVE: The patient is awake, alert, and at baseline mentation. Pain control is adequate with her baseline regimen. Monitored rhythm is sinus. No bradycardia. OBJECTIVE: VITAL SIGNS: Blood pressure is 142/79, pulse rate 89, respiratory rate 19, and afebrile. CHEST: Bilateral breath sounds. HEART: Regular rhythm and rate. Normal S1 and S2. Fourth heart sound. Left subclavian chest wall with no skin breakdown at the site of implanted loop recorder. ABDOMEN: Soft. EXTREMITIES: Without edema. NEUROLOGICAL: Baseline left weakness. IMPRESSION: 1. Toxic and metabolic encephalopathy, resolved. 2. Urinary tract infection with sepsis, improved. 3. Implanted loop recorder, nonfunctional. 4. Paroxysmal atrial fibrillation, maintaining sinus rhythm on amiodarone. 5. Hypertension, controlled. 6. Chronic diastolic congestive heart failure. PLAN: No indication for pacemaker. No plan to explant old loop recorder unless signs of infection in the future. Continue maintenance dose amiodarone. Titrate beta-regan based on clinical parameters. Continue anti-platelet and anti-lipid drugs, otherwise without change. Ayo Leone M.D. DR: Leslee JOB#: [id number] CC:
--- NOTE | 2016-11-11 08:28 | Diagnostic Imaging Report ---
Indications: Needs long-term IV access Technique: Ultrasound confirms patent compressible left brachial vein. Total sterile technique, including sterile probe cover and sterile gel, hat, mask,, sterile gown, large sterile drape, and preparation with 2% chlorhexidine utilized. Local anesthesia with 1% lidocaine. Under real-time ultrasound guidance, puncture brachial vein using 21-gauge needle, documented and archived, passage 0.018 guidewire under direct fluoroscopy, which was used to determine appropriate catheter length, exchange for 5 Argentine peel-away sheath. 5 Argentine Bard dual-lumen power PICC cut to 50 cm. It was inserted through the peel-away sheath. Peel-away sheath and guidewire removed. Catheter fixed to the skin. Both catheter ports aspirated and flushed. Patient tolerated procedure well, without immediate complication. Digital radiograph documents satisfactory catheter tip position, at the cavoatrial junction. Total fluoroscopy time 0.4 minutes. Total dose area product 5.2 dGycm2 Impression: Successful placement of left arm PICC under sonographic and fluoroscopic guidance, as described above.
--- NOTE | 2016-11-11 08:28 | Diagnostic Imaging Report ---
Indications: Altered level of consciousness Technique: Spiral acquisitions obtained through the brain. Angled axial and coronal 5 x 5 mm slices were reconstructed. Total dose length product 1390 mGycm. CTDI vol(s) 70 mGy. Dose reduction achieved using automated exposure control Comparison: 06/28/2013 Findings: There is age-related enlargement of ventricles and extra-axial CSF spaces. There is periventricular deep white matter chronic ischemic change. No acute hemorrhage or edema. No mass effect or midline shift. Otherwise normal car-white differentiation. There is evidence of prior right occipital craniotomy with a metal plate. This is new since previous study. No definite underlying cerebellar encephalomalacia, however. Maxillary sinus disease. Visualized orbits are unremarkable. Impression: Chronic and age-related changes. Negative for acute intracranial bleed or mass effect Interim right occipital craniotomy This agrees with the preliminary interpretation provided overnight by Dr. Andrade The CT scanner at [facility] is accredited by the [employer] and the scans are performed using protocols designed to limit radiation exposure to as low as reasonably achievable to attain images of sufficient resolution adequate for diagnostic evaluation.
== END 2016-11-08 18:00 | DRG 871 ==
LOC: EDBD 13:11 → EDUNIT# 13:11 → EMR 13:45 → 2E 14:35 → EDBEDREQ 14:59 → SDSOVERFLO 11-06 15:49 → 2E 11-06 15:51
PROC: B518ZZA Fluoroscopy of Superior Vena Cava, Guidance (ICD-10-PCS; principal; 2016-11-06)
PROC: 02HV33Z Insertion of Infusion Device into Superior Vena Cava, Percutaneous Approach (ICD-10-PCS; principal; 2016-11-06)
DX: A41.9 Sepsis, unspecified organism (principal); G92 Toxic encephalopathy; E44.1 Mild protein-calorie malnutrition; I48.0 Paroxysmal atrial fibrillation; I11.0 Hypertensive heart disease with heart failure; I50.32 Chronic diastolic (congestive) heart failure; E86.0 Dehydration; F03.90 Unspecified dementia, unspecified severity, without behavioral disturbance, psychotic disturbance, mood disturbance, and anxiety; R13.10 Dysphagia, unspecified; E11.42 Type 2 diabetes mellitus with diabetic polyneuropathy; I69.351 Hemiplegia and hemiparesis following cerebral infarction affecting right dominant side; N30.00 Acute cystitis without hematuria; Z68.41 Body mass index [BMI] 40.0-44.9, adult; G40.909 Epilepsy, unspecified, not intractable, without status epilepticus; G50.0 Trigeminal neuralgia; K21.9 Gastro-esophageal reflux disease without esophagitis; J44.9 Chronic obstructive pulmonary disease, unspecified; Z95.0 Presence of cardiac pacemaker; B96.20 Unspecified Escherichia coli [E. coli] as the cause of diseases classified elsewhere; Z93.1 Gastrostomy status
CPT/HCPCS: 36415; 36569; 70450; 71010; 76937; 80053; 80061; 80156; 80300; 80301; 80329; 81003; 82550; 82962; 83036; 83735; 84443; 84484; 85025; 85610; 85651; 85730; 87081; 87086; 87181; 93005; 94664; J1815

== ENCOUNTER 2017-11-24 14:54 | Inpatient (IN) | payer MEDICARE, BC, MEDICAID ==
[~2017-11-24] VITALS: Ht 172.7 cm; Wt 89.1 kg
[~2017-11-24 14:54] MED LIST changes: +ASPIR 8181 MG GT; +CARAFATE1 G1 GT; +CARBAMAZEPINE200 MG GT; +CYMBALTA30 MG GT; +DILAUDID1 MG/1 ML SUBQ; +FERROUS SULFAT325 MG GT; +INVANZ1 GM IM; +IPRATROPIU0.2 MG/1 M HHN; +METOPROLOL TART25 MG GT; +MIRALAX17 G2 GT; +NORCO 10-325 T1 EACH GT; +POTASSIUM CHLO20 ME1 GT; +PRO-STAT LIQUID30 ML GT; +UTI-STAT L3875 MG/31 GT; +VITAMIN C500 M1 GT; +Vancomycin 1.5gm/D5W 250ml 250 ML IVPB SCH; +ZOFRAN4 M1 GT
[2017-11-24] MEDS ORDERED: Lidocaine 1% MPF 10mg/ml 5ml ONE (15:10)
[2017-11-24] MEDS ORDERED: ZINC SULFATE220 M1 GT (15:24)
[2017-11-24] MEDS ORDERED: Nitroglycerin Subl 0.4mg tab SL PRN (15:30)
[2017-11-24] MEDS ORDERED: cloNIDine 0.2mg Tab ORAL ONE (15:30)
[2017-11-24 16:01] LABS: BASOPHILS % (AUTO) 1.4 % (0.0-2.0); EOSINOPHILS % (AUTO) 0.2 % (0.0-3.0); HEMATOCRIT 35.1 % (37.0-47.0); LYMPHOCYTES % (AUTO) 4.1 % (20.0-45.0); MEAN CORPUSCULAR VOLUME 98 FL (80-99); MONOCYTES % (AUTO) 10.7 % (1.0-10.0); NEUTROPHILS % (AUTO) 83.7 % (45.0-75.0); PLATELET COUNT 208 K/UL (150-450); RED BLOOD COUNT 3.57 M/UL (4.20-5.40); WHITE BLOOD COUNT 6.8 K/UL (4.8-10.8)
[2017-11-24 16:12] LABS: APPEARANCE,URINE SLIGHTLY CLOUDY; BILIRUBIN, URINE NEGATIVE (NEGATIVE); COLOR,URINE PALE YELLOW; GLUCOSE, URINE (UA) NEGATIVE (NEGATIVE); KETONES,URINE NEGATIVE (NEGATIVE); LEUKOCYTE ESTERASE ,URINE 3+ (NEGATIVE); NITRITE,URINE POSITIVE (NEGATIVE); PH,URINE 8 (4.5-8.0); PROTEIN,URINE 2+ (NEGATIVE); UROBILINOGEN,URINE NORMAL MG/DL (0.0-1.0)
[2017-11-24 16:14] LABS: CARBON DIOXIDE 25 MMOL/L (21-32); CHLORIDE 94 MMOL/L (98-107); POTASSIUM 4.1 MMOL/L (3.5-5.1); SODIUM 131 MMOL/L (136-145)
[2017-11-24 16:15] LABS: ANION GAP 12 mmol/L (5-15); BLOOD UREA NITROGEN 24 mg/dL (7-18); CALCIUM 9.3 MG/DL (8.5-10.1); CREATININE 1.3 MG/DL (0.55-1.30)
[2017-11-24] MEDS ORDERED: Lidocaine 1% MPF 10mg/ml 5ml IM ONE (16:15)
[2017-11-24 16:20] VITALS: BP 69/46
[2017-11-24 16:27] LABS: ALANINE AMINOTRANSFERASE 18 U/L (12-78); ALBUMIN/GLOBULIN RATIO 0.6 (1.0-2.7); ALKALINE PHOSPHATASE 155 U/L (46-116); ASPARTATE AMINO TRANSFERASE 20 U/L (15-37); BILIRUBIN,TOTAL 0.5 MG/DL (0.2-1.0); CKMB 0.6 NG/ML (0.0-3.6); CREATINE KINASE 25 U/L (26-308); PHOSPHORUS 3.4 MG/DL (2.5-4.9)
[2017-11-24 17:11] VITALS: BP 107/70
[2017-11-24] MEDS ORDERED: Ampicillin/Sulbactam Sod 3 GM in NS 110 ML IVPB ONE (18:15)
[2017-11-24 18:56] VITALS: BP 109/60
[2017-11-24 20:05] VITALS: BP 107/58
[2017-11-24 20:15] VITALS: BP 121/64
--- NOTE | 2017-11-24 21:18 | Emergency Room Report ---
History of Present Illness General Chief Complaint: Dyspnea/Respdistress Source: Patient, Medical Record Present Illness HPI Patient is a 77-year-old female brought in by her EMS after increased respiratory distress. Patient was noted to have prior history of a CVA and have bilateral lower extremity weakness. Patient was noted to be allergic to multiple medications. Patient had been the noted to be increasingly short of breath at her facility. Patient had been having increased congestion and cough. patient been subsequent started on supplemental oxygen by EMS.History is markedly limited by patient's mental status Allergies: Coded Allergies: LANSOPRAZOLE (Unverified Allergy, Severe, 01/11/13) BROMFENAC (Verified Allergy, Unknown, 12/03/08) DICLOFENAC (Verified Allergy, Unknown, 12/03/08) FENOPROFEN (Verified Allergy, Unknown, 12/03/08) FLURBIPROFEN (Verified Allergy, Unknown, 12/03/08) IBUPROFEN (Verified Allergy, Unknown, 12/03/08) INDOMETHACIN (Verified Allergy, Unknown, 12/03/08) KETOROLAC (Verified Allergy, Unknown, 12/03/08) MISOPROSTOL (Verified Allergy, Unknown, 12/03/08) MORPHINE (Verified Allergy, Unknown, 12/03/08) NAPROXEN (Verified Allergy, Unknown, 12/03/08) PIROXICAM (Verified Allergy, Unknown, 12/03/08) SULINDAC (Verified Allergy, Unknown, 12/03/08) Uncoded Allergies: NSAIDS (Allergy, Unknown, 11/24/17) Patient History Past Medical History: see triage record Reviewed Nursing Documentation: PMH: Agreed; PSxH: Agreed Nursing Documentation-PMH Past Medical History: No History, Except For Hx Cardiac Problems: Yes - CHF Hx Hypertension: Yes Hx Pacemaker: Yes Hx Asthma: Yes Hx COPD: Yes Hx Diabetes: Yes Hx Cancer: No Hx Gastrointestinal Problems: Yes - g tube GERD Hx Neurological Problems: Yes Hx Cerebrovascular Accident: Yes Hx Dementia: Yes Hx Seizures: Yes Hx Peripheral Neuropathy: Yes Hx Weakness: Yes - RIGHT SIDED Review of Systems All Other Systems: limited Physical Exam Vital Signs Date Time Temp Pulse Resp B/P (MAP) Pulse Ox O2 Delivery O2 Flow Rate FiO2 11/24/17 14:44 114 26 77/46 98 Non-Rebreather 15.0 11/24/17 15:42 100 11/24/17 16:20 97.0 97.0 General Appearance: Chronically Ill Head: atraumatic ENT: normal voice Neck: limited range of motion Respiratory: rales, rhonchi Cardiovascular #1: tachycardia, edema Gastrointestinal: other - gastrostomy, jejunostomy Genitourinary: no CVA tenderness Neurologic: responsive, motor weakness - bilateral lower extremity Medical Decision Making Diagnostic Impression: Primary Impression: Sepsis Additional Impression: Pneumonia ER Course Patient presented for fever. Differential diagnosis included wasn't limited to pneumonia, urinary tract infection, drug fever, allergic reaction, sepsis, cholecystitis, among others.Because of complexity of patient's case laboratory testing and imaging studies were ordered. The patient was noted to have initially difficulty with breathing. Patient was started on IV fluids. Initially patient was noted to be hypertensive which was spurious reading. The patient was started on IV fluids. The patient noted to have poor IV access. Central venous catheter was attempted in the right femoral area as well as in the the right internal jugular with ultrasound guidance without success. Eventually peripheral IV was establishedPatient was started on BiPAP due to respiratory difficulty. Dr. Omar Fournier I was contacted for inpatient management due to primary care physician Labs Test 11/24/17 15:30 11/24/17 16:00 11/24/17 18:05 White Blood Count 6.8 K/UL (4.8-10.8) Red Blood Count 3.57 M/UL (4.20-5.40) Hemoglobin 12.0 G/DL (12.0-16.0) Hematocrit 35.1 % (37.0-47.0) Mean Corpuscular Volume 98 FL (80-99) Mean Corpuscular Hemoglobin 33.7 PG (27.0-31.0) Mean Corpuscular Hemoglobin Concent 34.3 G/DL (32.0-36.0) Red Cell Distribution Width 13.0 % (11.6-14.8) Platelet Count 208 K/UL (150-450) Mean Platelet Volume 5.6 FL (6.5-10.1) Neutrophils (%) (Auto) 83.7 % (45.0-75.0) Lymphocytes (%) (Auto) 4.1 % (20.0-45.0) Monocytes (%) (Auto) 10.7 % (1.0-10.0) Eosinophils (%) (Auto) 0.2 % (0.0-3.0) Basophils (%) (Auto) 1.4 % (0.0-2.0) Sodium Level 131 MMOL/L (136-145) Potassium Level 4.1 MMOL/L (3.5-5.1) Chloride Level 94 MMOL/L (98-107) Carbon Dioxide Level 25 MMOL/L (21-32) Anion Gap 12 mmol/L (5-15) Blood Urea Nitrogen 24 mg/dL (7-18) Creatinine 1.3 MG/DL (0.55-1.30) Estimat Glomerular Filtration Rate mL/min (>60) Glucose Level 148 MG/DL (74-106) Calcium Level 9.3 MG/DL (8.5-10.1) Phosphorus Level 3.4 MG/DL (2.5-4.9) Magnesium Level 2.4 MG/DL (1.8-2.4) Total Bilirubin 0.5 MG/DL (0.2-1.0) Aspartate Amino Transf (AST/SGOT) 20 U/L (15-37) Alanine Aminotransferase (ALT/SGPT) 18 U/L (12-78) Alkaline Phosphatase 155 U/L (46-116) Total Creatine Kinase 25 U/L (26-308) Creatine Kinase MB 0.6 NG/ML (0.0-3.6) Creatine Kinase MB Relative Index 2.4 Troponin I 0.000 ng/mL (0.000-0.056) Pro-B-Type Natriuretic Peptide 735 pg/mL (0-125) Total Protein 7.7 G/DL (6.4-8.2) Albumin 3.0 G/DL (3.4-5.0) Globulin 4.7 g/dL Albumin/Globulin Ratio 0.6 (1.0-2.7) Urine Color Pale yellow Urine Appearance Slightly cloudy Urine pH 8 (4.5-8.0) Urine Specific [place] 1.010 (1.005-1.035) Urine Protein 2+ (NEGATIVE) Urine Glucose (UA) Negative (NEGATIVE) Urine Ketones Negative (NEGATIVE) Urine Occult Blood 3+ (NEGATIVE) Urine Nitrite Positive (NEGATIVE) Urine Bilirubin Negative (NEGATIVE) Urine Urobilinogen Normal MG/DL (0.0-1.0) Urine Leukocyte Esterase 3+ (NEGATIVE) Urine RBC 20-30 /HPF (0 - 2) Urine WBC 15-20 /HPF (0 - 2) Urine Squamous Epithelial Cells Few /LPF (NONE/OCC) Urine Bacteria Many /HPF (NONE) Lactic Acid Level 1.50 mmol/L (0.66-2.22) Last Vital Signs Date Time Temp Pulse Resp B/P (MAP) Pulse Ox O2 Delivery O2 Flow Rate FiO2 11/24/17 20:05 97.0 82 16 107/58 100 Bi-pap 15.0 80 97.0 Status: unchanged Disposition: ADMITTED INPATIENT Condition: Serious Referrals: Omar Fournier MD (PCP) Juan Stanley MD Nov 24, 2017 21:18
[2017-11-24] MEDS ORDERED: FLORANEX TABLE1 EAC1 GT (22:49)
[2017-11-24] MEDS ORDERED: Piperacillin/Tazobactam 3.375 GM in D5W 110 ML IVPB SCH (23:00)
[2017-11-24] MEDS ORDERED: NORCO 5-325 TA1 EACH GT (23:01)
[2017-11-24] MEDS ORDERED: OXYCODONE H5 MG/5 ML GT (23:12)
[2017-11-24] MEDS: Albuterol/Ipratropium 3ml neb HHN SCH (23:31)
[2017-11-24] MEDS ORDERED: ALBUTEROL2.5 MG/3 M INH (23:32)
[2017-11-24] MEDS ORDERED: ISOPTO TEARS15 ML OP (23:40)
[2017-11-24] MEDS ORDERED: LOPERAMIDE1 MG/5 ML GT (23:40)
[2017-11-24] MEDS ORDERED: ONDANSETRON HCL4 M1 GT (23:40)
[2017-11-25] VITALS: BP 132/60
[2017-11-25] MEDS: Vancomycin 1.5gm/D5W 250ml 250 ML IVPB SCH (00:55)
[2017-11-25] MEDS: Albuterol/Ipratropium 3ml neb HHN SCH ×6 (03:04→22:42)
[2017-11-25] MEDS: Piperacillin/Tazobactam 3.375 GM in D5W 110 ML IVPB SCH ×3 (03:31→18:53)
[2017-11-25 04:00] VITALS: BP 123/60
[2017-11-25] MEDS: Levothyroxine 25mcg tab GT SCH (06:17)
[2017-11-25 06:27] LABS: BASOPHILS % (AUTO) 1.1 % (0.0-2.0); EOSINOPHILS % (AUTO) 0.3 % (0.0-3.0); HEMATOCRIT 42.6 % (37.0-47.0); HEMOGLOBIN 13.7 G/DL (12.0-16.0); MEAN CORPUSCULAR VOLUME 102 FL (80-99); MONOCYTES % (AUTO) 10.4 % (1.0-10.0); NEUTROPHILS % (AUTO) 77.2 % (45.0-75.0); PLATELET COUNT 237 K/UL (150-450); RED BLOOD COUNT 4.19 M/UL (4.20-5.40); RED CELL DISTRIBUTION WIDTH 13.3 % (11.6-14.8); WHITE BLOOD COUNT 8.1 K/UL (4.8-10.8)
[2017-11-25 06:54] LABS: ALANINE AMINOTRANSFERASE 16 U/L (12-78); ALBUMIN 2.8 G/DL (3.4-5.0); ALBUMIN/GLOBULIN RATIO 0.6 (1.0-2.7); ALKALINE PHOSPHATASE 143 U/L (46-116); ANION GAP 12 mmol/L (5-15); ASPARTATE AMINO TRANSFERASE 22 U/L (15-37); BILIRUBIN,TOTAL 0.5 MG/DL (0.2-1.0); BLOOD UREA NITROGEN 27 mg/dL (7-18); CALCIUM 9.3 MG/DL (8.5-10.1); CARBON DIOXIDE 26 MMOL/L (21-32); CHLORIDE 95 MMOL/L (98-107); CREATININE 1.2 MG/DL (0.55-1.30); POTASSIUM 4.5 MMOL/L (3.5-5.1); SODIUM 133 MMOL/L (136-145)
[2017-11-25 08:00] VITALS: BP 116/56
[2017-11-25] MEDS ORDERED: carBAMazepine 200mg tab GT ONE (09:00)
[2017-11-25] MEDS: Amiodarone 200mg tab GT SCH (09:06)
[2017-11-25] MEDS: DULoxetine 30mg cap ORAL SCH (09:06)
[2017-11-25] MEDS: Zinc Sulfate 220mg cap GT SCH (09:06)
[2017-11-25] MEDS: Lactobacillus-GG tablet GT SCH (09:06)
[2017-11-25] MEDS: Docusate 100mg/10ml Liq GT SCH ×3 (09:06→18:06)
[2017-11-25] MEDS: Multivitamins W/Minerals 15 ML UDC GT SCH (09:06)
[2017-11-25] MEDS: Aspirin Baby 81mg ORAL SCH (09:07)
[2017-11-25] MEDS: Heparin 5000 units/ml inj SUBQ SCH ×2 (09:08→21:17)
[2017-11-25 12:00] VITALS: BP 110/65
--- NOTE | 2017-11-25 12:30 | Cardiology Report ---
APPROVED REPORT EKG Measurement Heart [id number] Normal sinus rhythm Right bundle branch block Abnormal ECG
--- NOTE | 2017-11-25 13:37 | Diagnostic Imaging Report ---
Indication: Shortness of breath Technique: XRAY Chest 1v Comparison: 11/05/2016 Findings: Rectangular device again projecting over the left chest, possible implantable loop recorder. Heart size and mediastinal contours are stable. Unchanged elevation of the left hemidiaphragm with atelectasis or scarring at the left base. Otherwise, no focal airspace consolidation. No pleural effusion or pneumothorax. There is osteopenia and degenerative change of the spine. No acute osseous abnormality. Impression: Elevation of the left hemidiaphragm with left basilar linear opacities, possibly atelectasis or scarring. Correlate clinically.
--- NOTE | 2017-11-25 13:39 | Diagnostic Imaging Report ---
Indication: Cough Technique: XRAY Chest 1v Comparison: 11/24/2017 Findings: Increased hazy left basilar opacities. There is persistent elevation of the left hemidiaphragm. Heart size and mediastinal contours are stable allowing for differences in patient rotation. There is no pneumothorax. No appreciable acute osseous abnormality. Impression: Increased left basilar hazy opacities compared to one day prior.
--- NOTE | 2017-11-25 14:30 | Consultation ---
DATE OF CONSULTATION: 11/25/2017 PULMONARY CONSULTATION CONSULTING PHYSICIAN: Chon Garcia M.D. REASON FOR CONSULTATION: Respiratory insufficiency and congestion. HISTORY OF PRESENT ILLNESS: The patient is a 77-year-old female brought in for increasing respiratory distress. The patient has known history of CVA and have increasing difficulty breathing, congestion, and cough. The patient was brought in with supplemental oxygen and was evaluated in the emergency room. The patient was noted to have sepsis and pneumonia. I was called to assist and evaluate further. The patient is fairly poor historian at present. The patient appears to be in significant distress. Overall, course was reviewed. The patient was started on IV antibiotics. Follow up x-rays have been ordered. Nebulized therapy has been ordered. The patient otherwise in no significant distress. The patient does have multiple allergies, as noted and outlined the patient's events were acute in nature. The patient is a Full Code. PAST MEDICAL HISTORY: Notable for CHF, hypertension, pacemaker, COPD/asthma, diabetes, reflux disease, CVA with right-sided weakness, seizure disorder, and dementia. MEDICATIONS: Noted and reviewed. ALLERGIES: Multiple. SOCIAL HISTORY: Resides in a detention facility. PHYSICAL EXAMINATION: GENERAL: Chronically ill-appearing female, mildly congested. VITAL SIGNS: Blood pressure 133/60, pulse 90, respiratory rate 17, and saturations 99%. The patient is currently on BiPAP, the patient on 40% FiO2. Temperature is 97.3. HEENT: Overall negative. NECK: Supple. Without jugular venous distention. LUNGS: Scattered rhonchi. Moderate air entry. CARDIAC: Normal S1 and S2 without murmurs, rubs, or gallops. Not tachycardic at present. ABDOMEN: Soft, nontender, nondistended. G-tube in place. EXTREMITIES: No cyanosis or clubbing. There is right-sided weakness. SKIN: Noted and reviewed. LABORATORY DATA: Reviewed. White count 8.1, hematocrit 42, and platelets of 237. Chemistry is noted and reviewed, sodium 133, BUN 27, creatinine 1.2. Albumin is 2.8. Urinalysis has 3+ blood, 20 to 30 red cells, and 15 to 20 white cells. IMPRESSION: 1. Pneumonia, possible retirement acquired, possible aspiration. 2. Reflux disease. 3. COPD/asthma. 4. Dementia. 5. CVA. 6. Concern for aspiration. 7. G-tube. 8. Concern for reflux aspiration. 9. Protein-calorie malnutrition. RECOMMENDATIONS: I agree with supportive care. IV antibiotics. Respiratory care. BiPAP management. Obtain arterial blood gases. Follow and recommend further. Taper BiPAP to off. Follow up x-ray and follow up for clearing, suction as needed, and monitor for further changes, interventions, and ongoing recommendations. Review of the medications. The patient is on DVT prophylaxis, which appears to be adequate at present. Chon Garcia M.D. DR: MIRIAN JOB#: [id number] CC:
[2017-11-25] MEDS: Gabapentin 300 MG/6 ML Soln GT SCH ×2 (14:53→21:14)
[2017-11-25 16:00] VITALS: BP 101/61
--- NOTE | 2017-11-25 17:00 | History and Physical Report ---
DATE OF ADMISSION: 11/24/2017 CHIEF COMPLAINT: Respiratory failure, sepsis, and possible pneumonia. HISTORY OF PRESENT ILLNESS: The patient is a 77-year-old female, well known to me. She has a prior history of stroke, paroxysmal atrial fibrillation, and hypertension. She has a history of severe trigeminal neuralgia. She has a history of dysphagia, status post G-tube placement, hip fracture. She was transferred from a [facility] facility after being noted congested and short of breath. On evaluation in the emergency room, the patient was immediately placed on BiPAP because of respiratory distress. She is currently awake. She had x-ray, evidence of pneumonia. She has been started on broad-spectrum IV antibiotic therapy. She is now admitted for further evaluation and care. PAST MEDICAL HISTORY: As above. PAST SURGICAL HISTORY: Includes rhizotomy and G-tube. CURRENT MEDICATIONS: Reconciled and reviewed. ALLERGIES: Include diclofenac, fenoprofen, ibuprofen, Indocin, Prevacid, misoprostol, morphine, naproxen, NSAIDs, and piroxicam. FAMILY HISTORY: Noncontributory. SOCIAL HISTORY: There is no known history of tobacco, ethanol, or drugs. REVIEW OF SYSTEMS: GENERAL: No fever or chills. HEENT: No headaches or visual changes. CARDIOPULMONARY: No chest pain. Positive shortness of breath, cough, and congestion. GASTROINTESTINAL: No nausea or vomiting. GENITOURINARY: No urgency or frequency. MUSCULOSKELETAL: No joint pain or swelling. NEUROLOGIC: Positive history of seizures and stroke. PHYSICAL EXAMINATION: VITAL SIGNS: Temperature 97.3, pulse 85, respirations 17, and blood pressure 123/60. GENERAL: The patient is a well-developed female, in no apparent distress. She is awake, alert, does not follow commands, respond to questions. HEENT: Her pupils are equal, round, and reactive to light. Sclerae anicteric. Oropharynx is clear. NECK: Supple. HEART: Regular rate and rhythm. LUNGS: Scattered rhonchi. ABDOMEN: Soft, nontender, nondistended. EXTREMITIES: Without clubbing or cyanosis. LABORATORY DATA: Showed sodium 131, potassium 4.1, chloride 94, bicarbonate 25, BUN 24, and creatinine 1.3. White count was 7, hemoglobin 12, hematocrit 35, and platelets of 208. UA showed 15 to 20 wbc's. ASSESSMENT: This is a pleasant female with complaints of shortness of breath secondary to pneumonia. 1. Pneumonia, possibly aspiration. 2. History of stroke. 3. History of seizure disorder. 4. Trigeminal neuralgia. 5. Hyponatremia. 6. History of paroxysmal atrial fibrillation. 7. History of GI bleed. PLAN: IV hydration. Continue BiPAP. We will check blood gas and wean as able. Broad-spectrum antibiotics. Continue respiratory care and suctioning. We will continue G-tube feeds. Monitor for signs and symptoms of aspiration. Plan of care was discussed with the patient at the bedside. Omar Fournier M.D. DR: MILVIA JOB#: [id number] CC:
[2017-11-25 20:00] VITALS: BP 117/56
[2017-11-26] VITALS: BP 111/60
[2017-11-26] MEDS: Vancomycin 1.5gm/D5W 250ml 250 ML IVPB SCH (01:18)
[2017-11-26] MEDS: Albuterol/Ipratropium 3ml neb HHN SCH ×6 (02:21→23:00)
[2017-11-26] MEDS: Piperacillin/Tazobactam 3.375 GM in D5W 110 ML IVPB SCH ×3 (03:19→20:02)
[2017-11-26 04:00] VITALS: BP 107/59
[2017-11-26] MEDS: Gabapentin 300 MG/6 ML Soln GT SCH ×3 (06:12→21:56)
[2017-11-26] MEDS: Levothyroxine 25mcg tab GT SCH (06:13)
--- NOTE | 2017-11-26 07:46 | Pulmonology Progress Note ---
Assessment/Plan Assessment/Plan IMPRESSION: 1. Pneumonia, possible [facility] acquired, possible aspiration. 2. Reflux disease. 3. COPD/asthma. 4. Dementia. 5. CVA. 6. Concern for aspiration. 7. G-tube. 8. Concern for reflux aspiration. 9. Protein-calorie malnutrition. PLAN care as is imaging slightly worse pulmonary hygiene BIPAP PRN oxygen and titrate monitor for change check culture gt feeds aspiration precautions impression, plan, and exam edited and reviewed in detail care discussed with RN Subjective Allergies: Coded Allergies: LANSOPRAZOLE (Unverified Allergy, Severe, 01/11/13) BROMFENAC (Verified Allergy, Unknown, 12/03/08) DICLOFENAC (Verified Allergy, Unknown, 12/03/08) FENOPROFEN (Verified Allergy, Unknown, 12/03/08) FLURBIPROFEN (Verified Allergy, Unknown, 12/03/08) IBUPROFEN (Verified Allergy, Unknown, 12/03/08) INDOMETHACIN (Verified Allergy, Unknown, 12/03/08) KETOROLAC (Verified Allergy, Unknown, 12/03/08) MISOPROSTOL (Verified Allergy, Unknown, 12/03/08) MORPHINE (Verified Allergy, Unknown, 12/03/08) NAPROXEN (Verified Allergy, Unknown, 12/03/08) PIROXICAM (Verified Allergy, Unknown, 12/03/08) SULINDAC (Verified Allergy, Unknown, 12/03/08) Uncoded Allergies: NSAIDS (Allergy, Unknown, 11/24/17) Subjective improved off BIPAP on NC oxygen Objective Last 24 Hour Vital Signs Date Time Temp Pulse Resp B/P (MAP) Pulse Ox O2 Delivery O2 Flow Rate FiO2 11/26/17 06:51 107 18 99 Nasal Cannula 2.0 28 11/26/17 06:46 28 11/26/17 06:46 99 16 98 Nasal Cannula 2.0 28 11/26/17 04:00 99.8 103 20 107/59 98 Nasal Cannula 2.0 99.8 11/26/17 04:00 107 11/26/17 02:43 103 20 100 Nasal Cannula 2.0 28 11/26/17 02:33 99 18 100 Nasal Cannula 2.0 28 11/26/17 02:33 28 11/26/17 00:00 99.9 113 20 111/60 97 Nasal Cannula 2.0 99.9 11/26/17 00:00 114 11/25/17 23:01 98 20 100 Nasal Cannula 2.0 28 11/25/17 22:43 28 11/25/17 22:42 106 18 100 Nasal Cannula 2.0 28 11/25/17 20:00 115 11/25/17 20:00 99.9 115 18 117/56 100 Nasal Cannula 2.0 99.9 11/25/17 19:29 104 20 99 Nasal Cannula 2.0 28 11/25/17 19:20 28 11/25/17 19:20 103 18 97 Nasal Cannula 2.0 28 11/25/17 19:19 107 18 98 11/25/17 16:30 105 22 98 11/25/17 16:00 99.6 109 18 101/61 100 Nasal Cannula 2.0 99.6 11/25/17 16:00 2.0 11/25/17 16:00 101 11/25/17 15:55 102 22 100 Nasal Cannula 2.0 28 11/25/17 15:41 28 11/25/17 15:41 101 20 93 Nasal Cannula 2.0 28 11/25/17 14:46 100 16 97 11/25/17 14:15 100 16 95 11/25/17 12:32 90 16 96 Facial 40 11/25/17 12:00 40 11/25/17 12:00 98.2 98 19 110/65 100 Bi-pap 40 98.2 11/25/17 12:00 95 11/25/17 11:24 97 16 100 Bi-pap 40 11/25/17 11:14 95 17 98 Bi-pap 40 11/25/17 11:14 95 18 98 Facial 40 11/25/17 11:14 40 11/25/17 08:56 95 16 94 Facial 40 11/25/17 08:00 40 11/25/17 08:00 99.8 93 17 116/56 95 Bi-pap 40 99.8 11/25/17 08:00 94 Intake and Output 11/25/17 11/26/17 19:00 07:00 Intake Total 223.75 ml 1002.5 ml Output Total 1000 ml Balance 223.75 ml 2.5 ml Intake Oral 100 ml IV Total 123.75 ml 442.5 ml Tube Feeding 560 ml Output Urine Total 500 ml Gastric Drainage Total 500 ml # Voids 2 Objective GENERAL: Chronically ill-appearing female, comfortable HEENT: Overall negative. NECK: Supple. Without jugular venous distention. LUNGS: some rhonchi. Moderate air entry. CARDIAC: Normal S1 and S2 without murmurs, rubs, or gallops. Not tachycardic at present. ABDOMEN: Soft, nontender, nondistended. G-tube in place. EXTREMITIES: No cyanosis or clubbing. There is right-sided weakness. SKIN: Noted and reviewed. Microbiology Date/Time Source Procedure Growth Status 11/24/17 15:30 Blood Blood Culture - Preliminary NO GROWTH AFTER 24 HOURS Resulted 11/24/17 15:00 Blood Blood Culture - Preliminary NO GROWTH AFTER 24 HOURS Resulted 11/24/17 16:00 Urine,Clean Catch Urine Culture - Preliminary Resulted Current Medications Medications (Trade) Dose Ordered Sig/Donell Route PRN Reason Start Time Stop Time Status Last Admin Dose Admin Albuterol/ Ipratropium (Albuterol/ Ipratropium) 3 ml Q4HRT HHN 11/24/17 23:00 11/29/17 22:59 11/26/17 06:50 Amiodarone HCl (Cordarone) 200 mg DAILY GT 11/25/17 09:00 12/25/17 08:59 11/25/17 09:06 Aspirin (ASA) 81 mg DAILY ORAL 11/25/17 09:00 12/25/17 08:59 11/25/17 09:07 Docusate Sodium (Colace) 100 mg TID GT 11/25/17 09:00 12/25/17 08:59 11/25/17 18:06 Duloxetine HCl (Cymbalta) 30 mg DAILY ORAL 11/25/17 09:00 12/25/17 08:59 11/25/17 09:06 Famotidine (Pepcid) 20 mg BID GT 11/25/17 18:00 12/25/17 17:59 11/25/17 18:06 Folic Acid (Folate) 1 mg DAILY GT 11/25/17 09:00 12/25/17 08:59 11/25/17 09:06 Gabapentin (Neurontin) 900 mg EVERY 8 HOURS GT 11/25/17 14:00 12/25/17 13:59 11/26/17 06:12 Heparin Sodium (Porcine) (Heparin 5000 units/ml) 5,000 units EVERY 12 HOURS SUBQ 11/25/17 09:00 12/25/17 08:59 11/25/17 21:17 Lactobacillus Acidophilus (Culturelle) 1 tab DAILY GT 11/25/17 09:00 12/25/17 08:59 11/25/17 09:06 Levothyroxine Sodium (Synthroid) 50 mcg DAILY@0630 GT 11/25/17 06:30 12/25/17 06:29 11/26/17 06:13 Multivitamins (Multivitamins W/ Minerals 15ml Liquid) 5 ml DAILY GT 11/25/17 09:00 12/25/17 08:59 11/25/17 09:06 Piperacillin Sod/ Tazobactam Sod 3.375 gm/Dextrose 110 ml @ 27.5 mls/hr 0300,1100,1900 IVPB 11/25/17 03:00 12/02/17 02:59 11/26/17 03:19 Vancomycin HCl (Vanco rx to dose) 1 ea DAILY PRN MISC Per rx protocol 11/24/17 22:45 12/24/17 22:44 Vancomycin HCl/ Dextrose 250 ml @ 167 mls/hr Q24H IVPB 11/25/17 01:00 11/30/17 00:59 11/26/17 01:18 Zinc Sulfate (Zinc Sulfate) 220 mg DAILY GT 11/25/17 09:00 12/25/17 08:59 11/25/17 09:06 Chon Garcia MD Nov 26, 2017 07:46
[2017-11-26 08:00] VITALS: BP 110/59
[2017-11-26] MEDS: Docusate 100mg/10ml Liq GT SCH ×3 (08:39→17:13)
[2017-11-26] MEDS: Lactobacillus-GG tablet GT SCH (08:39)
[2017-11-26] MEDS: DULoxetine 30mg cap ORAL SCH (08:39)
[2017-11-26] MEDS: Aspirin Baby 81mg ORAL SCH (08:39)
[2017-11-26] MEDS: Zinc Sulfate 220mg cap GT SCH (08:39)
[2017-11-26] MEDS: Amiodarone 200mg tab GT SCH (08:39)
[2017-11-26] MEDS: Multivitamins W/Minerals 15 ML UDC GT SCH (08:40)
[2017-11-26] MEDS: Heparin 5000 units/ml inj SUBQ SCH ×2 (08:45→21:59)
--- NOTE | 2017-11-26 09:15 | General Progress Note ---
Assessment/Plan Problem List: (1) Aspiration pneumonia ICD Codes: J69.0 - Pneumonitis due to inhalation of food and vomit SNOMED: 524858856 (2) Fever (3) Seizure ICD Codes: R56.9 - Seizure SNOMED: 38670966 (4) Weakness ICD Codes: R53.1 - Weakness SNOMED: 33061507 (5) Altered mental status (6) Sepsis ICD Codes: A41.9 - Sepsis SNOMED: 75530745 Status: stable, progressing Assessment/Plan gt feeds resp care o2 iv abx monitor cxr pain rx skin care d/w dtr x 5 min Subjective ROS Limited/Unobtainable: No Constitutional: Reports: malaise, weakness HEENT: Reports: no symptoms Cardiovascular: Reports: no symptoms Respiratory: Reports: cough Gastrointestinal/Abdominal: Reports: difficulty swallowing Genitourinary: Reports: no symptoms Neurologic/Psychiatric: Reports: pre-existing deficit, seizure Endocrine: Reports: no symptoms Hematologic/Lymphatic: Reports: anemia Allergies: Coded Allergies: LANSOPRAZOLE (Unverified Allergy, Severe, 01/11/13) BROMFENAC (Verified Allergy, Unknown, 12/03/08) DICLOFENAC (Verified Allergy, Unknown, 12/03/08) FENOPROFEN (Verified Allergy, Unknown, 12/03/08) FLURBIPROFEN (Verified Allergy, Unknown, 12/03/08) IBUPROFEN (Verified Allergy, Unknown, 12/03/08) INDOMETHACIN (Verified Allergy, Unknown, 12/03/08) KETOROLAC (Verified Allergy, Unknown, 12/03/08) MISOPROSTOL (Verified Allergy, Unknown, 12/03/08) MORPHINE (Verified Allergy, Unknown, 12/03/08) NAPROXEN (Verified Allergy, Unknown, 12/03/08) PIROXICAM (Verified Allergy, Unknown, 12/03/08) SULINDAC (Verified Allergy, Unknown, 12/03/08) Uncoded Allergies: NSAIDS (Allergy, Unknown, 11/24/17) All Systems: reviewed and negative except above Subjective better today. off bipap. low grade temp. cxr with left sided infiltrate. Objective Last 24 Hour Vital Signs Date Time Temp Pulse Resp B/P (MAP) Pulse Ox O2 Delivery O2 Flow Rate FiO2 11/26/17 08:00 117 11/26/17 06:51 107 18 99 Nasal Cannula 2.0 28 6/19/18 06:46 28 6/18 06:46 99 16 98 Nasal Cannula 2.0 28 11/26/18 04:00 99.8 103 20 107/59 98 Nasal Cannula 2.0 99.8 18 04:00 107 618 02:43 103 20 100 Nasal Cannula 2.0 28 11/26/18 02:33 99 18 100 Nasal Cannula 2.0 28 18 02:33 28 18 00:00 99.9 113 20 111/60 97 Nasal Cannula 2.0 99.9 18 00:00 114 18 23:01 98 20 100 Nasal Cannula 2.0 28 18 22:43 28 18 22:42 106 18 100 Nasal Cannula 2.0 28 18 20:00 115 18 20:00 99.9 115 18 117/56 100 Nasal Cannula 2.0 99.9 18 19:29 104 20 99 Nasal Cannula 2.0 28 18 19:20 28 18 19:20 103 18 97 Nasal Cannula 2.0 28 18 19:19 107 18 98 18 16:30 105 22 98 18 16:00 99.6 109 18 101/61 100 Nasal Cannula 2.0 99.6 18 16:00 2.0 18 16:00 101 18 15:55 102 22 100 Nasal Cannula 2.0 28 18 15:41 28 18 15:41 101 20 93 Nasal Cannula 2.0 28 18 14:46 100 16 97 18/18 14:15 100 16 95 18/18 12:32 90 16 96 Facial 40 18 12:00 40 18 12:00 98.2 98 19 110/65 100 Bi-pap 40 98.2 18 12:00 95 18 11:24 97 16 100 Bi-pap 40 11/25/18 11:14 95 17 98 Bi-pap 40 18 11:14 95 18 98 Facial 40 11/25/17 11:14 40 Intake and Output 11/25/17 11/26/17 19:00 07:00 Intake Total 223.75 ml 1002.5 ml Output Total 1000 ml Balance 223.75 ml 2.5 ml Intake Oral 100 ml IV Total 123.75 ml 442.5 ml Tube Feeding 560 ml Output Urine Total 500 ml Gastric Drainage Total 500 ml # Voids 2 Laboratory Tests 11/26/17 08:25: Sodium Level [Pending], Potassium Level [Pending], Chloride Level [Pending], Carbon Dioxide Level [Pending], Blood Urea Nitrogen [Pending], Creatinine [ Pending], Estimat Glomerular Filtration Rate [Pending], Glucose Level [Pending] , Calcium Level [Pending], Total Bilirubin [Pending], Aspartate Amino Transf ( AST/SGOT) [Pending], Alanine Aminotransferase (ALT/SGPT) [Pending], Alkaline Phosphatase [Pending], Total Protein [Pending], Albumin [Pending], Globulin [ Pending] 11/26/17 09:05: White Blood Count [Pending], Red Blood Count [Pending], Hemoglobin [Pending], Hematocrit [Pending], Mean Corpuscular Volume [Pending], Mean Corpuscular Hemoglobin [Pending], Mean Corpuscular Hemoglobin Concent [Pending], Red Cell Distribution Width [Pending], Platelet Count [Pending], Mean Platelet Volume [ Pending], Neutrophils (%) (Auto) [Pending], Lymphocytes (%) (Auto) [Pending], Monocytes (%) (Auto) [Pending], Eosinophils (%) (Auto) [Pending], Basophils (%) (Auto) [Pending] Height (Feet): 5 Height (Inches): 8.00 Weight (Pounds): 190 General Appearance: WD/WN, alert Neck: supple Cardiovascular: normal rate, regular rhythm Respiratory/Chest: chest wall non-tender, lungs clear, normal breath sounds, no respiratory distress Abdomen: normal bowel sounds, non tender, soft, no organomegaly Edema: no edema noted Arm (L), no edema noted Arm (R), no edema noted Leg (L), no edema noted Leg (R), no edema noted Pedal (L), no edema noted Pedal (R), no edema noted Generalized Omar Fournier MD Nov 26, 2017 09:15
[2017-11-26] MEDS: Norco 5mg/325mg tab GT PRN ×4 (09:28→23:12)
[2017-11-26 09:40] LABS: ALANINE AMINOTRANSFERASE 22 U/L (12-78); ALBUMIN 2.2 G/DL (3.4-5.0); ALBUMIN/GLOBULIN RATIO 0.5 (1.0-2.7); ALKALINE PHOSPHATASE 133 U/L (46-116); ANION GAP 8 mmol/L (5-15); ASPARTATE AMINO TRANSFERASE 27 U/L (15-37); BILIRUBIN,TOTAL 0.7 MG/DL (0.2-1.0); BLOOD UREA NITROGEN 32 mg/dL (7-18); CALCIUM 8.4 MG/DL (8.5-10.1); CARBON DIOXIDE 28 MMOL/L (21-32); CHLORIDE 96 MMOL/L (98-107); CREATININE 1.1 MG/DL (0.55-1.30); POTASSIUM 3.6 MMOL/L (3.5-5.1); SODIUM 132 MMOL/L (136-145)
[2017-11-26 10:03] LABS: BASOPHILS % (AUTO) 0.4 % (0.0-2.0); EOSINOPHILS % (AUTO) 1.9 % (0.0-3.0); HEMATOCRIT 32.6 % (37.0-47.0); HEMOGLOBIN 10.8 G/DL (12.0-16.0); LYMPHOCYTES % (AUTO) 6.6 % (20.0-45.0); MEAN CORPUSCULAR VOLUME 98 FL (80-99); MONOCYTES % (AUTO) 7.7 % (1.0-10.0); NEUTROPHILS % (AUTO) 83.5 % (45.0-75.0); PLATELET COUNT 207 K/UL (150-450); RED BLOOD COUNT 3.31 M/UL (4.20-5.40); RED CELL DISTRIBUTION WIDTH 12.5 % (11.6-14.8); WHITE BLOOD COUNT 7.5 K/UL (4.8-10.8)
[2017-11-26 12:00] VITALS: BP 123/66
[2017-11-26 16:00] VITALS: BP 110/68
--- NOTE | 2017-11-26 16:00 | Consultation ---
DATE OF CONSULTATION: 11/26/2017 INFECTIOUS DISEASE CONSULTATION CONSULTING PHYSICIAN: Christel Woodruff M.D. REFERRING PHYSICIAN: Omar Fournier M.D. REASON FOR CONSULTATION: Pneumonia. HISTORY OF PRESENTING ILLNESS: This is a 77-year-old lady with history of CVA, atrial fibrillation, hypertension, severe trigeminal neuralgia, dysphagia, status post G-tube placement, and hip fracture, who [facility] from [facility] with congestion and shortness of breath. She was seen in [place] emergency room where she was found to have a pneumonia. An Infectious Diseases consultation has been obtained for antibiotics. PAST MEDICAL HISTORY: 1. History of CVA. 2. Atrial fibrillation. 3. History of congestive heart failure. 4. History of hypertension. 5. Status post pacemaker placement. 6. History of COPD. 7. History of asthma. 8. History of diabetes. 9. Seizure disorder. 10. Dementia. 11. Trigeminal neuralgia. 12. Dysphagia, status post G-tube placement. 13. Status post rhizotomy. SOCIAL HISTORY: No history of smoking, alcohol, or drug use. FAMILY HISTORY: Noncontributory. REVIEW OF SYSTEMS: Unable to obtain currently. MEDICATIONS: As an inpatient, she is on Neurontin, [place], Dulcolax, Pepcid, amiodarone, Cymbalta, Lactobacillus, folic acid, subcutaneous heparin, zinc sulfate, aspirin, docusate, multivitamin, levothyroxine, vancomycin, Zosyn, albuterol, and ipratropium. ALLERGIES: Bromfenac, diclofenac, fenoprofen, flurbiprofen, ibuprofen, indomethacin, ketorolac, lansoprazole, misoprostol, morphine, naproxen, piroxicam, and sulindac. PHYSICAL EXAMINATION: VITAL SIGNS: Temperature of 98, T-max of 99.9, pulse of 105, respiratory rate 20, blood pressure of 107/59, and O2 saturation of 98%. HEENT: Pupils equally reactive to light and accommodation. Mouth appears clean without thrush. NECK: Supple. No adenopathy. No JVD. CARDIOVASCULAR: Regular rate and rhythm. No murmurs. LUNGS: Clear to auscultation bilaterally. No crackles. No wheezes. ABDOMEN: Soft and nontender. No organomegaly. EXTREMITIES: No cyanosis, no clubbing, no edema. LABORATORY AND DIAGNOSTIC DATA: White count 7.5, hemoglobin 10.8, hematocrit 32.6, MCV 98, platelet count of 207,000, and neutrophils of 83%. Sodium 132, potassium 3.6, chloride 96, bicarb 28, BUN 32, creatinine 1.1, glucose 137, calcium 8.4. Total bilirubin 0.7. AST 27, ALT 22, and alkaline phosphatase 133. Total protein 6.7. Albumin 2.2. UA showing 15 to 20 white cells. Urine culture showing gram-negative rods. The 11/24/2017 blood cultures are negative. Chest x-ray showing increased left basal hazy opacities. ASSESSMENT: This is a 77-year-old lady with history of trigeminal neuralgia, atrial fibrillation, CVA, who comes in with, 1. Gram-negative urinary tract infection. 2. Hypertension. 3. COPD. 4. Dementia. 5. Possible aspiration pneumonia. PLAN: 1. Continue vancomycin and Zosyn. 2. We will order sputum for Gram stain and culture. 3. We will follow up cultures and adjust antibiotics accordingly. I would like to thank, Dr. Fournier, for this consultation. Christel Woodruff M.D. DR: SHANICE JOB#: [id number] CC: Omar Fournier M.D.
[2017-11-26] MEDS ORDERED: Metoprolol 25mg tab GT SCH ×2 (16:15→16:30)
[2017-11-26 20:00] VITALS: BP 107/55
[2017-11-26] MEDS: Metoprolol 25mg tab GT SCH (21:56)
[2017-11-27] VITALS: BP 111/56
[2017-11-27] MEDS: Vancomycin 1.5gm/D5W 250ml 250 ML IVPB SCH (00:56)
--- NOTE | 2017-11-27 02:45 | Consultation ---
DATE OF CONSULTATION: 11/25/2017 CARDIOLOGY CONSULTATION CONSULTING PHYSICIAN: Ayo Leone M.D. REQUESTING PHYSICIAN: Omar Fournier M.D. REASON FOR CONSULT: Conduction system disease of the heart with cardiac arrhythmias in the setting of respiratory failure and pneumonia. HISTORY OF PRESENT ILLNESS: This is a 77-year-old female. She has a longstanding history of cerebrovascular disease and chronic trigeminal neuralgia. She was noted to be congested at the [facility] facility and in respiratory distress. She was brought to the emergency room and was started on BiPAP support. She was also noted to have an abnormal radiograph suggesting acute pneumonia. I have been asked to assist with cardiovascular care. The patient has known history of hypertensive heart disease. She also has history of paroxysmal atrial fibrillation and is on amiodarone for suppression. The patient has an indwelling event recorder that was never removed, it is nonfunctional and failed to have revealed any signs of advanced conduction disease requiring a pacemaker. PAST MEDICAL HISTORY: Further notable for CVA, dementia, trigeminal neuralgia, dysphagia, gastrostomy tube, status post rhizotomy, hypertensive heart disease, paroxysmal atrial fibrillation, implanted event recorder, conduction system disease of the heart. MEDICATIONS: Reviewed and reconciled. ALLERGIES: Multiple and include fenoprofen, diclofenac, all nonsteroidals, morphine, misoprostol, and Prevacid. FAMILY HISTORY: Noncontributory. SOCIAL HISTORY: No recent history of smoking, alcohol, or substance abuse. REVIEW OF SYSTEMS: Not obtainable from the patient. Prior records are reviewed. Of note, recent echocardiogram revealed normal ejection fraction, concentric hypertrophy, and mild degenerative valve disease. PHYSICAL EXAMINATION: VITAL SIGNS: Blood pressure 117/56, pulse 115, respiratory rate 18, and temperature 99.9 degrees. On BiPAP support at times. Now on nasal cannula. LUNGS: Bilateral breath sounds with rhonchi. Some accessory muscle use. HEART: Regular rhythm. Rapid rate. Normal S1 and S2. ABDOMEN: Soft. G-tube intact. EXTREMITIES: No edema. NEUROLOGIC: With facial asymmetry. SKIN: Left chest wall with a small implanted device palpated under the skin. LABORATORY AND DIAGNOSTIC DATA: Chest x-ray reveals right middle lobe infiltrate. White count 8 and hemoglobin 13.7. Sodium 133, potassium 4.5, BUN 27, and creatinine 1.2. Albumin 2.8. ABG, pH 7.41, pCO2 of 41, and pO2 of 88. IMPRESSION: 1. Healthcare-acquired pneumonia. 2. Urinary tract infection. 3. Sepsis. 4. Secondary sinus tachycardia. 5. Paroxysmal atrial fibrillation. 6. Conduction system disease of the heart, asymptomatic. 7. History of implanted event recorder, now nonfunctional. 8. Hypertensive cardiomyopathy. 9. Trigeminal neuralgia with chronic pain. PLAN: 1. Antimicrobials. 2. Bronchodilators. 3. Respiratory hygiene. 4. BiPAP p.r.n. 5. Continue maintenance-dose amiodarone. 6. Maintain adequate hydration with saline. 7. DVT prophylaxis. 8. No plan for removal of event recorder. 9. Check thyroid panel. Ayo Leone M.D. DR: BRYSON JOB#: [id number] CC:
[2017-11-27] MEDS: Piperacillin/Tazobactam 3.375 GM in D5W 110 ML IVPB SCH ×3 (02:51→22:11)
--- NOTE | 2017-11-27 03:00 | Progress Note ---
DATE: 11/26/2017 CARDIOLOGY PROGRESS NOTE SUBJECTIVE: The patient remains with congestion off BiPAP. No respiratory distress. Nasal cannula. Monitored sinus rhythm and sinus tachycardia. OBJECTIVE: LUNGS: Coarse breath sounds. Scattered rhonchi. HEART: Regular rhythm and rate. Normal S1, S2. Fourth heart sound. ABDOMEN: Soft. G-tube intact. EXTREMITIES: No edema. LABORATORY DATA: Sodium 132, potassium 3.6, BUN 32, and creatinine 1.1. Albumin 3.2. White count 7.5, hemoglobin 10.8. IMPRESSION: 1. Healthcare-acquired pneumonia. 2. Dysphagia. 3. Hypertensive cardiomyopathy. 4. Paroxysmal atrial fibrillation. 5. Implanted loop recorder, nonfunctional. 6. Urinary tract infections. 7. Chronic pain due to trigeminal neuralgia. 8. Seizure disorder. 9. Cerebrovascular disease with dementia and dysphagia. 10. Severe protein-calorie malnutrition. PLAN: 1. Antimicrobials. 2. Bronchodilators. 3. Respiratory hygiene. 4. Oxygen supplementation. 5. Maintenance dose amiodarone. 6. Saline replacement. 7. Protein supplement by G-tube. 8. DVT prophylaxis. Ayo Leone M.D. DR: Patrick JOB#: [id number] CC:
[2017-11-27] MEDS: Albuterol/Ipratropium 3ml neb HHN SCH ×6 (03:21→23:00)
[2017-11-27] MEDS: Norco 5mg/325mg tab GT PRN ×5 (03:55→22:09)
[2017-11-27 04:00] VITALS: BP 116/60
[2017-11-27 05:25] LABS: BASOPHILS % (AUTO) 0.7 % (0.0-2.0); HEMATOCRIT 31.4 % (37.0-47.0); HEMOGLOBIN 10.5 G/DL (12.0-16.0); LYMPHOCYTES % (AUTO) 5.9 % (20.0-45.0); MEAN CORPUSCULAR VOLUME 99 FL (80-99); MONOCYTES % (AUTO) 6.5 % (1.0-10.0); NEUTROPHILS % (AUTO) 81.9 % (45.0-75.0); PLATELET COUNT 216 K/UL (150-450); RED BLOOD COUNT 3.18 M/UL (4.20-5.40); RED CELL DISTRIBUTION WIDTH 12.4 % (11.6-14.8)
[2017-11-27 05:40] LABS: ALANINE AMINOTRANSFERASE 31 U/L (12-78); ALBUMIN 2.2 G/DL (3.4-5.0); ALBUMIN/GLOBULIN RATIO 0.5 (1.0-2.7); ALKALINE PHOSPHATASE 144 U/L (46-116); ANION GAP 5 mmol/L (5-15); ASPARTATE AMINO TRANSFERASE 33 U/L (15-37); BILIRUBIN,TOTAL 0.6 MG/DL (0.2-1.0); BLOOD UREA NITROGEN 28 mg/dL (7-18); CALCIUM 8.6 MG/DL (8.5-10.1); CARBON DIOXIDE 30 MMOL/L (21-32); CHLORIDE 97 MMOL/L (98-107); CREATININE 0.9 MG/DL (0.55-1.30); POTASSIUM 3.1 MMOL/L (3.5-5.1); SODIUM 132 MMOL/L (136-145)
[2017-11-27] MEDS: Gabapentin 300 MG/6 ML Soln GT SCH ×3 (06:24→22:07)
[2017-11-27 08:00] VITALS: BP 124/59
--- NOTE | 2017-11-27 08:23 | General Progress Note ---
Assessment/Plan Problem List: (1) Aspiration pneumonia ICD Codes: J69.0 - Pneumonitis due to inhalation of food and vomit SNOMED: 195213199 (2) Fever (3) Seizure ICD Codes: R56.9 - Seizure SNOMED: 49079025 (4) Weakness ICD Codes: R53.1 - Weakness SNOMED: 31666179 (5) Altered mental status (6) Sepsis ICD Codes: A41.9 - Sepsis SNOMED: 26372825 Status: stable, progressing Assessment/Plan gt feeds resp care o2 iv abx monitor cxr pain rx skin care Subjective ROS Limited/Unobtainable: No Constitutional: Reports: no symptoms HEENT: Reports: no symptoms Cardiovascular: Reports: no symptoms Respiratory: Reports: cough, shortness of breath Gastrointestinal/Abdominal: Reports: difficulty swallowing Genitourinary: Reports: no symptoms Neurologic/Psychiatric: Reports: pre-existing deficit Endocrine: Reports: no symptoms Hematologic/Lymphatic: Reports: no symptoms Allergies: Coded Allergies: LANSOPRAZOLE (Unverified Allergy, Severe, 01/11/13) BROMFENAC (Verified Allergy, Unknown, 12/03/08) DICLOFENAC (Verified Allergy, Unknown, 12/03/08) FENOPROFEN (Verified Allergy, Unknown, 12/03/08) FLURBIPROFEN (Verified Allergy, Unknown, 12/03/08) IBUPROFEN (Verified Allergy, Unknown, 12/03/08) INDOMETHACIN (Verified Allergy, Unknown, 12/03/08) KETOROLAC (Verified Allergy, Unknown, 12/03/08) MISOPROSTOL (Verified Allergy, Unknown, 12/03/08) MORPHINE (Verified Allergy, Unknown, 12/03/08) NAPROXEN (Verified Allergy, Unknown, 12/03/08) PIROXICAM (Verified Allergy, Unknown, 12/03/08) SULINDAC (Verified Allergy, Unknown, 12/03/08) Uncoded Allergies: NSAIDS (Allergy, Unknown, 11/24/17) All Systems: reviewed and negative except above Subjective on and off bipap. trigeminal pain better controlled. ID, pulm and cards appreciated Objective Last 24 Hour Vital Signs Date Time Temp Pulse Resp B/P (MAP) Pulse Ox O2 Delivery O2 Flow Rate FiO2 11/27/17 08:00 98.3 84 20 124/59 100 Bi-pap 40 98.3 11/27/17 07:32 Nasal Cannula 11/27/17 07:30 84 18 99 Nasal Cannula 2.0 28 11/27/17 04:54 98.1 11/27/17 04:00 98.1 81 20 116/60 99 Bi-pap 40 98.1 11/27/17 04:00 89 11/27/17 03:55 97.6 11/27/17 03:27 85 18 99 Nasal Cannula 2.0 28 11/27/17 03:21 28 11/27/17 03:21 86 18 99 Nasal Cannula 2.0 28 11/27/17 00:00 75 11/27/17 00:00 97.6 78 20 111/56 99 Nasal Cannula 2.0 97.6 11/26/17 23:46 Nasal Cannula 11/26/17 23:46 77 18 99 Nasal Cannula 2.0 28 11/26/17 23:12 97.1 11/26/17 21:56 77 107/55 11/26/17 20:00 97.1 81 20 107/55 99 Nasal Cannula 2.0 97.1 11/26/17 20:00 77 11/26/17 19:33 77 18 99 Nasal Cannula 2.0 28 11/26/17 19:21 76 18 100 Nasal Cannula 2.0 28 11/26/17 19:21 28 11/26/17 18:15 98.0 11/26/17 17:13 110 112/69 11/26/17 16:00 98.8 110 19 110/68 99 Nasal Cannula 2.0 98.8 11/26/17 16:00 114 11/26/17 14:26 88 18 99 Nasal Cannula 2.0 28 11/26/17 14:19 89 16 100 Nasal Cannula 2.0 28 11/26/17 14:19 28 11/26/17 13:42 98.0 11/26/17 12:00 99.1 109 22 123/66 99 Nasal Cannula 2.0 99.1 11/26/17 12:00 104 11/26/17 10:42 105 20 99 Nasal Cannula 2.0 28 11/26/17 10:35 28 11/26/17 10:35 108 16 99 Nasal Cannula 2.0 28 11/26/17 09:28 98.0 Intake and Output 11/26/17 11/27/17 19:00 07:00 Intake Total 310.0 ml 1214.0 ml Output Total 400 ml 500 ml Balance -90.0 ml 714.0 ml Free Water 200 ml 100 ml IV Total 110.0 ml 554.0 ml Tube Feeding 560 ml Output Urine Total 400 ml 500 ml # Bowel Movements 4 2 Laboratory Tests 11/26/17 08:25: Sodium Level 132L, Potassium Level 3.6, Chloride Level 96L, Carbon Dioxide Level 28, Anion Gap 8, Blood Urea Nitrogen 32H, Creatinine 1.1, Estimat Glomerular Filtration Rate , Glucose Level 137H, Calcium Level 8.4L, Total Bilirubin 0.7, Aspartate Amino Transf (AST/SGOT) 27, Alanine Aminotransferase ( ALT/SGPT) 22, Alkaline Phosphatase 133H, Total Protein 6.7, Albumin 2.2L, Globulin 4.5, Albumin/Globulin Ratio 0.5L 11/26/17 09:25: White Blood Count 7.5, Red Blood Count 3.31L, Hemoglobin 10.8L, Hematocrit 32.6L , Mean Corpuscular Volume 98, Mean Corpuscular Hemoglobin 32.5H, Mean Corpuscular Hemoglobin Concent 33.0, Red Cell Distribution Width 12.5, Platelet Count 207, Mean Platelet Volume 5.1L, Neutrophils (%) (Auto) 83.5H, Lymphocytes (%) (Auto) 6.6L, Monocytes (%) (Auto) 7.7, Eosinophils (%) (Auto) 1.9, Basophils (%) (Auto) 0.4 11/27/17 04:38: Sodium Level 132L, Potassium Level 3.1L, Chloride Level 97L, Carbon Dioxide Level 30, Anion Gap 5, Blood Urea Nitrogen 28H, Creatinine 0.9, Estimat Glomerular Filtration Rate , Glucose Level 120H, Calcium Level 8.6, Total Bilirubin 0.6, Aspartate Amino Transf (AST/SGOT) 33, Alanine Aminotransferase ( ALT/SGPT) 31, Alkaline Phosphatase 144H, Total Protein 6.9, Albumin 2.2L, Globulin 4.7, Albumin/Globulin Ratio 0.5L, White Blood Count 8.0, Red Blood Count 3.18L, Hemoglobin 10.5L, Hematocrit 31.4L, Mean Corpuscular Volume 99, Mean Corpuscular Hemoglobin 32.9H, Mean Corpuscular Hemoglobin Concent 33.3, Red Cell Distribution Width 12.4, Platelet Count 216, Mean Platelet Volume 5.6L , Neutrophils (%) (Auto) 81.9H, Lymphocytes (%) (Auto) 5.9L, Monocytes (%) (Auto ) 6.5, Eosinophils (%) (Auto) 5.0H, Basophils (%) (Auto) 0.7 Height (Feet): 5 Height (Inches): 8.00 Weight (Pounds): 196 General Appearance: WD/WN, alert Neck: supple Cardiovascular: normal peripheral pulses, normal rate, regular rhythm Respiratory/Chest: chest wall non-tender, lungs clear, normal breath sounds, no respiratory distress Abdomen: normal bowel sounds, non tender, soft, no organomegaly Edema: no edema noted Arm (L), no edema noted Arm (R), no edema noted Leg (L), no edema noted Leg (R), no edema noted Pedal (L), no edema noted Pedal (R), no edema noted Generalized Neurologic: alert, oriented x 3, responsive Omar Fournier MD Nov 27, 2017 08:23
[2017-11-27] MEDS: Aspirin Baby 81mg ORAL SCH (09:28)
[2017-11-27] MEDS: Multivitamins W/Minerals 15 ML UDC GT SCH (09:28)
[2017-11-27] MEDS: Docusate 100mg/10ml Liq GT SCH ×3 (09:28→17:46)
[2017-11-27] MEDS: Lactobacillus-GG tablet GT SCH (09:29)
[2017-11-27] MEDS: DULoxetine 30mg cap ORAL SCH (09:29)
[2017-11-27] MEDS: Amiodarone 200mg tab GT SCH (09:29)
[2017-11-27] MEDS: Zinc Sulfate 220mg cap GT SCH (09:29)
[2017-11-27] MEDS: Heparin 5000 units/ml inj SUBQ SCH ×2 (09:32→22:12)
[2017-11-27] MEDS: Metoprolol 25mg tab GT SCH ×2 (09:33→22:07)
--- NOTE | 2017-11-27 10:13 | Diagnostic Imaging Report ---
Indication: Cough Technique: One view of the chest Comparison: 11/25/2017 Findings: The patient is rotated to the right. Slightly better inspiration on the current study. There is persist atelectasis at the left lung base. Generalized hazy left lung opacity probably mostly reflects overlying soft tissue, but there is also suggestion of pleural fluid on the left as well Monitor overlies the chest. The heart is borderline enlarged. Findings are essentially unchanged from previously. Impression: Left basilar atelectasis and likely left pleural effusion, unchanged over 2 days
[2017-11-27 12:15] VITALS: BP 116/60
--- NOTE | 2017-11-27 13:07 | Infectious Diseases Prog Note ---
Assessment/Plan Assessment/Plan A; UTI Aspiration pneumonia s/p CVA HPN Anemia Gastrostomy status P: Continue Zosyn May discontinue Vancomycin Subjective ROS Limited/Unobtainable: No Constitutional: Reports: no symptoms Respiratory: Reports: no symptoms Cardiovascular: Reports: no symptoms Gastrointestinal/Abdominal: Reports: no symptoms Genitourinary: Reports: no symptoms Allergies: Coded Allergies: LANSOPRAZOLE (Unverified Allergy, Severe, 01/11/13) BROMFENAC (Verified Allergy, Unknown, 12/03/08) DICLOFENAC (Verified Allergy, Unknown, 12/03/08) FENOPROFEN (Verified Allergy, Unknown, 12/03/08) FLURBIPROFEN (Verified Allergy, Unknown, 12/03/08) IBUPROFEN (Verified Allergy, Unknown, 12/03/08) INDOMETHACIN (Verified Allergy, Unknown, 12/03/08) KETOROLAC (Verified Allergy, Unknown, 12/03/08) MISOPROSTOL (Verified Allergy, Unknown, 12/03/08) MORPHINE (Verified Allergy, Unknown, 12/03/08) NAPROXEN (Verified Allergy, Unknown, 12/03/08) PIROXICAM (Verified Allergy, Unknown, 12/03/08) SULINDAC (Verified Allergy, Unknown, 12/03/08) Uncoded Allergies: NSAIDS (Allergy, Unknown, 11/24/17) Objective Vital Signs Last 24 Hour Vital Signs Date Time Temp Pulse Resp B/P (MAP) Pulse Ox O2 Delivery O2 Flow Rate FiO2 11/27/17 11:30 Nasal Cannula 11/27/17 11:30 Nasal Cannula 11/27/17 09:33 84 124/59 11/27/17 08:00 98.3 84 20 124/59 100 Bi-pap 40 98.3 11/27/17 08:00 84 11/27/17 07:32 Nasal Cannula 11/27/17 07:30 84 18 99 Nasal Cannula 2.0 28 11/27/17 04:54 98.1 11/27/17 04:00 98.1 81 20 116/60 99 Bi-pap 40 98.1 11/27/17 04:00 89 11/27/17 03:55 97.6 11/27/17 03:27 85 18 99 Nasal Cannula 2.0 28 11/27/17 03:21 28 11/27/17 03:21 86 18 99 Nasal Cannula 2.0 28 11/27/17 00:00 75 11/27/17 00:00 97.6 78 20 111/56 99 Nasal Cannula 2.0 97.6 11/26/17 23:46 Nasal Cannula 11/26/17 23:46 77 18 99 Nasal Cannula 2.0 28 11/26/17 23:12 97.1 11/26/17 21:56 77 107/55 11/26/17 20:00 97.1 81 20 107/55 99 Nasal Cannula 2.0 97.1 11/26/17 20:00 77 11/26/17 19:33 77 18 99 Nasal Cannula 2.0 28 11/26/17 19:21 76 18 100 Nasal Cannula 2.0 28 11/26/17 19:21 28 11/26/17 18:15 98.0 11/26/17 17:13 110 112/69 11/26/17 16:00 98.8 110 19 110/68 99 Nasal Cannula 2.0 98.8 11/26/17 16:00 114 11/26/17 14:26 88 18 99 Nasal Cannula 2.0 28 11/26/17 14:19 89 16 100 Nasal Cannula 2.0 28 11/26/17 14:19 28 11/26/17 13:42 98.0 Height (Feet): 5 Height (Inches): 8.00 Weight (Pounds): 196 General Appearance: no acute distress HEENT: other - corneal opacity in left eye Respiratory/Chest: lungs clear Cardiovascular: normal rate Abdomen: soft, non tender, other - GT feeding Extremities: no edema - GJ tube Neurologic/Psychiatric: other - Right hemiplegia Microbiology Date/Time Source Procedure Growth Status 11/24/17 15:30 Blood Blood Culture - Preliminary NO GROWTH AFTER 48 HOURS Resulted 11/24/17 15:00 Blood Blood Culture - Preliminary NO GROWTH AFTER 48 HOURS Resulted 11/24/17 15:30 Nasal Nares MRSA Culture - Final NO METHICILLIN RESISTANT STAPH AUREUS... Complete 11/24/17 16:00 Urine,Clean Catch Urine Culture - Final Providencia Stuartii Proteus Mirabilis Complete Laboratory Tests Test 11/27/17 04:38 White Blood Count 8.0 K/UL (4.8-10.8) Red Blood Count 3.18 M/UL (4.20-5.40) L Hemoglobin 10.5 G/DL (12.0-16.0) L Hematocrit 31.4 % (37.0-47.0) L Mean Corpuscular Volume 99 FL (80-99) Mean Corpuscular Hemoglobin 32.9 PG (27.0-31.0) H Mean Corpuscular Hemoglobin Concent 33.3 G/DL (32.0-36.0) Red Cell Distribution Width 12.4 % (11.6-14.8) Platelet Count 216 K/UL (150-450) Mean Platelet Volume 5.6 FL (6.5-10.1) L Neutrophils (%) (Auto) 81.9 % (45.0-75.0) H Lymphocytes (%) (Auto) 5.9 % (20.0-45.0) L Monocytes (%) (Auto) 6.5 % (1.0-10.0) Eosinophils (%) (Auto) 5.0 % (0.0-3.0) H Basophils (%) (Auto) 0.7 % (0.0-2.0) Sodium Level 132 MMOL/L (136-145) L Potassium Level 3.1 MMOL/L (3.5-5.1) L Chloride Level 97 MMOL/L (98-107) L Carbon Dioxide Level 30 MMOL/L (21-32) Anion Gap 5 mmol/L (5-15) Blood Urea Nitrogen 28 mg/dL (7-18) H Creatinine 0.9 MG/DL (0.55-1.30) Estimat Glomerular Filtration Rate mL/min (>60) Glucose Level 120 MG/DL (74-106) H Calcium Level 8.6 MG/DL (8.5-10.1) Total Bilirubin 0.6 MG/DL (0.2-1.0) Aspartate Amino Transf (AST/SGOT) 33 U/L (15-37) Alanine Aminotransferase (ALT/SGPT) 31 U/L (12-78) Alkaline Phosphatase 144 U/L (46-116) H Total Protein 6.9 G/DL (6.4-8.2) Albumin 2.2 G/DL (3.4-5.0) L Globulin 4.7 g/dL Albumin/Globulin Ratio 0.5 (1.0-2.7) L Current Medications Medications (Trade) Dose Ordered Sig/Donell Route PRN Reason Start Time Stop Time Status Last Admin Dose Admin Acetaminophen/ Hydrocodone Bitart ([place] 5/325) 1 tab Q4H PRN GT Moderate Pain (Pain Scale 4-6) 11/27/17 13:00 12/03/17 08:59 UNV Albuterol/ Ipratropium (Albuterol/ Ipratropium) 3 ml Q4HRT HHN 11/27/17 15:00 11/29/17 22:59 UNV Amiodarone HCl (Cordarone) 200 mg DAILY GT 11/28/17 09:00 12/25/17 08:59 UNV Aspirin (ASA) 81 mg DAILY ORAL 11/28/17 09:00 12/25/17 08:59 UNV Bisacodyl (Dulcolax) 10 mg DAILYPRN PRN RECTAL Constipation 11/28/17 09:00 12/26/17 08:59 UNV Docusate Sodium (Colace) 100 mg TID GT 11/27/17 13:00 12/25/17 08:59 UNV Duloxetine HCl (Cymbalta) 30 mg DAILY ORAL 11/28/17 09:00 12/25/17 08:59 UNV Famotidine (Pepcid) 20 mg BID GT 11/27/17 18:00 12/25/17 17:59 UNV Folic Acid (Folate) 1 mg DAILY GT 11/28/17 09:00 12/25/17 08:59 UNV Gabapentin (Neurontin) 900 mg Q8HR GT 11/27/17 14:00 12/26/17 13:59 UNV Heparin Sodium (Porcine) (Heparin 5000 units/ml) 5,000 units EVERY 12 HOURS SUBQ 11/27/17 21:00 12/25/17 08:59 UNV Lactobacillus Acidophilus (Culturelle) 1 tab DAILY GT 11/28/17 09:00 12/25/17 08:59 UNV Levothyroxine Sodium (Synthroid) 50 mcg DAILY@0630 GT 11/28/17 06:30 12/25/17 06:29 UNV Metoprolol Tartrate (Lopressor) 25 mg Q12HR GT 11/27/17 21:00 12/26/17 20:59 UNV Multivitamins (Multivitamins W/ Minerals 15ml Liquid) 5 ml DAILY GT 11/28/17 09:00 12/25/17 08:59 UNV Piperacillin Sod/ Tazobactam Sod 3.375 gm/Dextrose 110 ml @ 27.5 mls/hr 0300,1100,1900 IVPB 11/27/17 19:00 12/02/17 02:59 UNV Vancomycin HCl (Vanco rx to dose) 1 ea DAILY PRN MISC Per rx protocol 11/28/17 09:00 12/24/17 22:44 UNV Vancomycin HCl/ Dextrose 250 ml @ 167 mls/hr Q24H IVPB 11/28/17 01:00 11/30/17 00:59 UNV Zinc Sulfate (Zinc Sulfate) 220 mg DAILY GT 11/28/17 09:00 12/25/17 08:59 UNV Moris Jefferson MD Nov 27, 2017 13:07
--- NOTE | 2017-11-27 15:48 | Cardiology Report ---
APPROVED REPORT EKG Measurement Heart [id number] P79 [id number] Atrial flutter with variable AV block with premature ventricular or aberrantly conducted complexes Low voltage QRS Possible Lateral infarct, age undetermined Inferior injury pattern Consider right ventricular involvement in acute inferior infarct Abnormal ECG
[2017-11-27 16:00] VITALS: BP 112/61
[2017-11-27 20:00] VITALS: BP 135/79
--- NOTE | 2017-11-27 22:10 | Pulmonology Progress Note ---
Assessment/Plan Assessment/Plan Assessment/Plan IMPRESSION: 1. Pneumonia, possible correction acquired, possible aspiration. 2. Reflux disease. 3. COPD/asthma. 4. Dementia. 5. CVA. 6. Concern for aspiration. 7. G-tube. 8. Concern for reflux aspiration. 9. Protein-calorie malnutrition. PLAN care as is imaging slightly worse pulmonary hygiene BIPAP PRN oxygen and titrate monitor for change check culture gt feeds aspiration precautions impression, plan, and exam edited and reviewed in detail care discussed with RN Subjective Allergies: Coded Allergies: LANSOPRAZOLE (Unverified Allergy, Severe, 01/11/13) BROMFENAC (Verified Allergy, Unknown, 12/03/08) DICLOFENAC (Verified Allergy, Unknown, 12/03/08) FENOPROFEN (Verified Allergy, Unknown, 12/03/08) FLURBIPROFEN (Verified Allergy, Unknown, 12/03/08) IBUPROFEN (Verified Allergy, Unknown, 12/03/08) INDOMETHACIN (Verified Allergy, Unknown, 12/03/08) KETOROLAC (Verified Allergy, Unknown, 12/03/08) MISOPROSTOL (Verified Allergy, Unknown, 12/03/08) MORPHINE (Verified Allergy, Unknown, 12/03/08) NAPROXEN (Verified Allergy, Unknown, 12/03/08) PIROXICAM (Verified Allergy, Unknown, 12/03/08) SULINDAC (Verified Allergy, Unknown, 12/03/08) Uncoded Allergies: NSAIDS (Allergy, Unknown, 11/24/17) Subjective improved off BIPAP on NC oxygen Objective Last 24 Hour Vital Signs Date Time Temp Pulse Resp B/P (MAP) Pulse Ox O2 Delivery O2 Flow Rate FiO2 11/26/17 06:51 107 18 99 Nasal Cannula 2.0 28 11/26/17 06:46 28 11/26/17 06:46 99 16 98 Nasal Cannula 2.0 28 11/26/17 04:00 99.8 103 20 107/59 98 Nasal Cannula 2.0 99.8 11/26/17 04:00 107 11/26/17 02:43 103 20 100 Nasal Cannula 2.0 28 11/26/17 02:33 99 18 100 Nasal Cannula 2.0 28 11/26/17 02:33 28 11/26/17 00:00 99.9 113 20 111/60 97 Nasal Cannula 2.0 99.9 11/26/17 00:00 114 11/25/17 23:01 98 20 100 Nasal Cannula 2.0 28 11/25/17 22:43 28 11/25/17 22:42 106 18 100 Nasal Cannula 2.0 28 11/25/17 20:00 115 11/25/17 20:00 99.9 115 18 117/56 100 Nasal Cannula 2.0 99.9 11/25/17 19:29 104 20 99 Nasal Cannula 2.0 28 11/25/17 19:20 28 11/25/17 19:20 103 18 97 Nasal Cannula 2.0 28 11/25/17 19:19 107 18 98 11/25/17 16:30 105 22 98 11/25/17 16:00 99.6 109 18 101/61 100 Nasal Cannula 2.0 99.6 11/25/17 16:00 2.0 11/25/17 16:00 101 11/25/17 15:55 102 22 100 Nasal Cannula 2.0 28 11/25/17 15:41 28 11/25/17 15:41 101 20 93 Nasal Cannula 2.0 28 11/25/17 14:46 100 16 97 11/25/17 14:15 100 16 95 11/25/17 12:32 90 16 96 Facial 40 11/25/17 12:00 40 11/25/17 12:00 98.2 98 19 110/65 100 Bi-pap 40 98.2 11/25/17 12:00 95 11/25/17 11:24 97 16 100 Bi-pap 40 11/25/17 11:14 95 17 98 Bi-pap 40 11/25/17 11:14 95 18 98 Facial 40 11/25/17 11:14 40 11/25/17 08:56 95 16 94 Facial 40 11/25/17 08:00 40 11/25/17 08:00 99.8 93 17 116/56 95 Bi-pap 40 99.8 11/25/17 08:00 94 Intake and Output 11/25/17 11/26/17 19:00 07:00 Intake Total 223.75 ml 1002.5 ml Output Total 1000 ml Balance 223.75 ml 2.5 ml Intake Oral 100 ml IV Total 123.75 ml 442.5 ml Tube Feeding 560 ml Output Urine Total 500 ml Gastric Drainage Total 500 ml # Voids 2 Objective GENERAL: Chronically ill-appearing female, comfortable HEENT: Overall negative. NECK: Supple. Without jugular venous distention. LUNGS: some rhonchi. Moderate air entry. CARDIAC: Normal S1 and S2 without murmurs, rubs, or gallops. Not tachycardic at present. ABDOMEN: Soft, nontender, nondistended. G-tube in place. EXTREMITIES: No cyanosis or clubbing. There is right-sided weakness. SKIN: Noted and reviewed. Microbiology Date/Time Source Procedure Growth Status 11/24/17 15:30 Blood Blood Culture - Preliminary NO GROWTH AFTER 24 HOURS Resulted 11/24/17 15:00 Blood Blood Culture - Preliminary NO GROWTH AFTER 24 HOURS Resulted 11/24/17 16:00 Urine,Clean Catch Urine Culture - Preliminary Resulted Current Medications Medications (Trade) Dose Ordered Sig/Donell Route PRN Reason Start Time Stop Time Status Last Admin Dose Admin Albuterol/ Ipratropium (Albuterol/ Ipratropium) 3 ml Q4HRT HHN 11/24/17 23:00 11/29/17 22:59 11/26/17 06:50 Amiodarone HCl (Cordarone) 200 mg DAILY GT 11/25/17 09:00 12/25/17 08:59 11/25/17 09:06 Aspirin (ASA) 81 mg DAILY ORAL 11/25/17 09:00 12/25/17 08:59 11/25/17 09:07 Docusate Sodium (Colace) 100 mg TID GT 11/25/17 09:00 12/25/17 08:59 11/25/17 18:06 Duloxetine HCl (Cymbalta) 30 mg DAILY ORAL 11/25/17 09:00 12/25/17 08:59 11/25/17 09:06 Famotidine (Pepcid) 20 mg BID GT 11/25/17 18:00 12/25/17 17:59 11/25/17 18:06 Folic Acid (Folate) 1 mg DAILY GT 11/25/17 09:00 12/25/17 08:59 11/25/17 09:06 Gabapentin (Neurontin) 900 mg EVERY 8 HOURS GT 11/25/17 14:00 12/25/17 13:59 11/26/17 06:12 Heparin Sodium (Porcine) (Heparin 5000 units/ml) 5,000 units EVERY 12 HOURS SUBQ 11/25/17 09:00 12/25/17 08:59 11/25/17 21:17 Lactobacillus Acidophilus (Culturelle) 1 tab DAILY GT 11/25/17 09:00 12/25/17 08:59 11/25/17 09:06 Levothyroxine Sodium (Synthroid) 50 mcg DAILY@0630 GT 11/25/17 06:30 12/25/17 06:29 11/26/17 06:13 Multivitamins (Multivitamins W/ Minerals 15ml Liquid) 5 ml DAILY GT 11/25/17 09:00 12/25/17 08:59 11/25/17 09:06 Piperacillin Sod/ Tazobactam Sod 3.375 gm/Dextrose 110 ml @ 27.5 mls/hr 0300,1100,1900 IVPB 11/25/17 03:00 12/02/17 02:59 11/26/17 03:19 Vancomycin HCl (Vanco rx to dose) 1 ea DAILY PRN MISC Per rx protocol 11/24/17 22:45 12/24/17 22:44 Vancomycin HCl/ Dextrose 250 ml @ 167 mls/hr Q24H IVPB 11/25/17 01:00 11/30/17 00:59 11/26/17 01:18 Zinc Sulfate (Zinc Sulfate) 220 mg DAILY GT 11/25/17 09:00 12/25/17 08:59 11/25/17 09:06 Subjective ROS Limited/Unobtainable: Yes Allergies: Coded Allergies: LANSOPRAZOLE (Unverified Allergy, Severe, 01/11/13) BROMFENAC (Verified Allergy, Unknown, 12/03/08) DICLOFENAC (Verified Allergy, Unknown, 12/03/08) FENOPROFEN (Verified Allergy, Unknown, 12/03/08) FLURBIPROFEN (Verified Allergy, Unknown, 12/03/08) IBUPROFEN (Verified Allergy, Unknown, 12/03/08) INDOMETHACIN (Verified Allergy, Unknown, 12/03/08) KETOROLAC (Verified Allergy, Unknown, 12/03/08) MISOPROSTOL (Verified Allergy, Unknown, 12/03/08) MORPHINE (Verified Allergy, Unknown, 12/03/08) NAPROXEN (Verified Allergy, Unknown, 12/03/08) PIROXICAM (Verified Allergy, Unknown, 12/03/08) SULINDAC (Verified Allergy, Unknown, 12/03/08) Uncoded Allergies: NSAIDS (Allergy, Unknown, 11/24/17) Objective Last 24 Hour Vital Signs Date Time Temp Pulse Resp B/P (MAP) Pulse Ox O2 Delivery O2 Flow Rate FiO2 11/27/17 20:00 98.2 72 24 135/79 99 Nasal Cannula 2.0 98.2 11/27/17 20:00 70 11/27/17 19:50 Nasal Cannula 11/27/17 19:50 Nasal Cannula 11/27/17 16:00 97.5 68 18 112/61 100 Nasal Cannula 2.0 97.5 11/27/17 16:00 66 11/27/17 15:44 Nasal Cannula 11/27/17 15:44 Nasal Cannula 11/27/17 12:15 98.2 80 20 116/60 100 Nasal Cannula 2.0 98.2 11/27/17 12:00 71 11/27/17 11:30 Nasal Cannula 11/27/17 11:30 Nasal Cannula 11/27/17 09:33 84 124/59 11/27/17 08:00 98.3 84 20 124/59 100 Bi-pap 40 98.3 11/27/17 08:00 84 11/27/17 07:32 Nasal Cannula 11/27/17 07:30 84 18 99 Nasal Cannula 2.0 28 11/27/17 04:54 98.1 11/27/17 04:00 98.1 81 20 116/60 99 Bi-pap 40 98.1 11/27/17 04:00 89 11/27/17 03:55 97.6 11/27/17 03:27 85 18 99 Nasal Cannula 2.0 28 11/27/17 03:21 28 11/27/17 03:21 86 18 99 Nasal Cannula 2.0 28 11/27/17 00:00 75 11/27/17 00:00 97.6 78 20 111/56 99 Nasal Cannula 2.0 97.6 11/26/17 23:46 Nasal Cannula 11/26/17 23:46 77 18 99 Nasal Cannula 2.0 28 11/26/17 23:12 97.1 Intake and Output 11/26/17 11/27/17 19:00 07:00 Intake Total 310.0 ml 1214.0 ml Output Total 400 ml 500 ml Balance -90.0 ml 714.0 ml Free Water 200 ml 100 ml IV Total 110.0 ml 554.0 ml Tube Feeding 560 ml Output Urine Total 400 ml 500 ml # Bowel Movements 4 2 Laboratory Tests 11/27/17 04:38: White Blood Count 8.0, Red Blood Count 3.18L, Hemoglobin 10.5L, Hematocrit 31.4L , Mean Corpuscular Volume 99, Mean Corpuscular Hemoglobin 32.9H, Mean Corpuscular Hemoglobin Concent 33.3, Red Cell Distribution Width 12.4, Platelet Count 216, Mean Platelet Volume 5.6L, Neutrophils (%) (Auto) 81.9H, Lymphocytes (%) (Auto) 5.9L, Monocytes (%) (Auto) 6.5, Eosinophils (%) (Auto) 5.0H, Basophils (%) (Auto) 0.7, Sodium Level 132L, Potassium Level 3.1L, Chloride Level 97L, Carbon Dioxide Level 30, Anion Gap 5, Blood Urea Nitrogen 28H, Creatinine 0.9, Estimat Glomerular Filtration Rate , Glucose Level 120H, Calcium Level 8.6, Total Bilirubin 0.6, Aspartate Amino Transf (AST/SGOT) 33, Alanine Aminotransferase (ALT/SGPT) 31, Alkaline Phosphatase 144H, Total Protein 6.9, Albumin 2.2L, Globulin 4.7, Albumin/Globulin Ratio 0.5L Current Medications Medications (Trade) Dose Ordered Sig/Donell Route PRN Reason Start Time Stop Time Status Last Admin Dose Admin Acetaminophen/ Hydrocodone Bitart ([place] 5/325) 1 tab Q4H PRN GT Moderate Pain (Pain Scale 4-6) 11/27/17 13:00 12/03/17 08:59 11/27/17 17:47 Albuterol/ Ipratropium (Albuterol/ Ipratropium) 3 ml Q4HRT HHN 11/27/17 15:00 11/29/17 22:59 Amiodarone HCl (Cordarone) 200 mg DAILY GT 11/28/17 09:00 12/25/17 08:59 Aspirin (ASA) 81 mg DAILY ORAL 11/28/17 09:00 12/25/17 08:59 Bisacodyl (Dulcolax) 10 mg DAILYPRN PRN RECTAL Constipation 11/27/17 13:30 12/27/17 13:29 Docusate Sodium (Colace) 100 mg TID GT 11/27/17 13:00 12/25/17 08:59 11/27/17 17:46 Duloxetine HCl (Cymbalta) 30 mg DAILY ORAL 11/28/17 09:00 12/25/17 08:59 Famotidine (Pepcid) 20 mg BID GT 11/27/17 18:00 12/25/17 17:59 11/27/17 17:46 Folic Acid (Folate) 1 mg DAILY GT 11/28/17 09:00 12/25/17 08:59 Gabapentin (Neurontin) 900 mg Q8HR GT 11/27/17 14:00 12/26/17 13:59 11/27/17 14:44 Heparin Sodium (Porcine) (Heparin 5000 units/ml) 5,000 units EVERY 12 HOURS SUBQ 11/27/17 21:00 12/25/17 08:59 Lactobacillus Acidophilus (Culturelle) 1 tab DAILY GT 11/28/17 09:00 12/25/17 08:59 Levothyroxine Sodium (Synthroid) 50 mcg DAILY@0630 GT 11/28/17 06:30 12/25/17 06:29 Metoprolol Tartrate (Lopressor) 25 mg Q12HR GT 11/27/17 21:00 12/26/17 20:59 Multivitamins (Multivitamins W/ Minerals 15ml Liquid) 5 ml DAILY GT 11/28/17 09:00 12/25/17 08:59 Piperacillin Sod/ Tazobactam Sod 3.375 gm/Dextrose 110 ml @ 27.5 mls/hr Q8HR IVPB 11/27/17 14:00 12/04/17 13:59 11/27/17 14:00 Zinc Sulfate (Zinc Sulfate) 220 mg DAILY GT 11/28/17 09:00 12/25/17 08:59 Ayo Eldridge MD Nov 27, 2017 22:10
[2017-11-28] VITALS: BP 141/81
[2017-11-28] MEDS ORDERED: Vancomycin 1.5gm/D5W 250ml 250 ML IVPB SCH (01:00)
[2017-11-28] MEDS: Norco 5mg/325mg tab GT PRN ×2 (01:54→08:50)
[2017-11-28] MEDS: Albuterol/Ipratropium 3ml neb HHN SCH ×4 (03:00→15:00)
--- NOTE | 2017-11-28 03:45 | Progress Note ---
DATE: 11/27/2017 CARDIOLOGY PROGRESS NOTE SUBJECTIVE: The patient is intermittently on BiPAP support, still with congestion and shortness of breath. Pain control is improved over her left facies. OBJECTIVE: VITAL SIGNS: Blood pressure 124/59, pulse 84, respiratory rate 20, and afebrile. LUNGS: Clear. CARDIAC: Regular. Normal S1, S2 with a fourth heart sound. ABDOMEN: Soft. EXTREMITIES: Trace edema. LABORATORY DATA: White count 8, hemoglobin 10.5. Potassium 3.1, BUN 28, creatinine 0.9, albumin 2.2. X-ray today reveals atelectasis with small left effusion. IMPRESSION: 1. Hypokalemia. 2. Hyponatremia. 3. Acute kidney injury with prerenal azotemia. 4. Severe protein-calorie malnutrition. 5. Paroxysmal atrial fibrillation. 6. Chronic anemia. 7. Trigeminal neuralgia. 8. Hypertensive heart disease. 9. Small left pleural effusion. 10. Aspiration pneumonia. PLAN: 1. Potassium replacement. 2. Check magnesium. 3. Continue amiodarone. 4. Continue cautious hydration with saline. 5. Monitor volume status and cardiorenal parameters. Ayo Leone M.D. DR: Tessie JOB#: [id number] CC:
[2017-11-28 04:00] VITALS: BP 133/81
[2017-11-28 05:53] LABS: BASOPHILS % (AUTO) 0.5 % (0.0-2.0); HEMATOCRIT 33.1 % (37.0-47.0); LYMPHOCYTES % (AUTO) 9.2 % (20.0-45.0); MEAN CORPUSCULAR VOLUME 100 FL (80-99); MONOCYTES % (AUTO) 8.7 % (1.0-10.0); NEUTROPHILS % (AUTO) 75.5 % (45.0-75.0); PLATELET COUNT 235 K/UL (150-450); RED BLOOD COUNT 3.32 M/UL (4.20-5.40); RED CELL DISTRIBUTION WIDTH 12.4 % (11.6-14.8); WHITE BLOOD COUNT 5.6 K/UL (4.8-10.8)
[2017-11-28 06:05] LABS: ALANINE AMINOTRANSFERASE 39 U/L (12-78); ALBUMIN 2.3 G/DL (3.4-5.0); ALBUMIN/GLOBULIN RATIO 0.5 (1.0-2.7); ALKALINE PHOSPHATASE 145 U/L (46-116); ANION GAP 7 mmol/L (5-15); ASPARTATE AMINO TRANSFERASE 39 U/L (15-37); BILIRUBIN,TOTAL 0.3 MG/DL (0.2-1.0); BLOOD UREA NITROGEN 20 mg/dL (7-18); CALCIUM 9.1 MG/DL (8.5-10.1); CARBON DIOXIDE 29 MMOL/L (21-32); CHLORIDE 99 MMOL/L (98-107); CREATININE 0.8 MG/DL (0.55-1.30); POTASSIUM 3.9 MMOL/L (3.5-5.1); SODIUM 135 MMOL/L (136-145)
[2017-11-28] MEDS: Gabapentin 300 MG/6 ML Soln GT SCH (06:21)
[2017-11-28] MEDS: Piperacillin/Tazobactam 3.375 GM in D5W 110 ML IVPB SCH (06:22)
[2017-11-28 08:00] VITALS: BP 148/77
[2017-11-28] MEDS: Docusate 100mg/10ml Liq GT SCH (08:47)
[2017-11-28] MEDS: Metoprolol 25mg tab GT SCH (08:48)
[2017-11-28] MEDS: Heparin 5000 units/ml inj SUBQ SCH (08:51)
[2017-11-28] MEDS ORDERED: ZOSYN 3.373.375 GM/1 IVPB (08:54)
[2017-11-28] MEDS ORDERED: DULoxetine 30mg cap ORAL SCH (09:00)
[2017-11-28] MEDS ORDERED: Amiodarone 200mg tab GT SCH (09:00)
[2017-11-28] MEDS ORDERED: Multivitamins W/Minerals 15 ML UDC GT SCH (09:00)
[2017-11-28] MEDS ORDERED: Lactobacillus-GG tablet GT SCH (09:00)
[2017-11-28] MEDS ORDERED: Aspirin Baby 81mg ORAL SCH (09:00)
[2017-11-28] MEDS ORDERED: Zinc Sulfate 220mg cap GT SCH (09:00)
--- NOTE | 2017-11-28 10:46 | Infectious Diseases Prog Note ---
Assessment/Plan Assessment/Plan A; UTI with Proteus & Providencia Aspiration pneumonia s/p CVA HPN Anemia Gastrostomy status P: Continue Zosyn Subjective ROS Limited/Unobtainable: Yes Respiratory: Reports: no symptoms Gastrointestinal/Abdominal: Reports: no symptoms Genitourinary: Reports: no symptoms Allergies: Coded Allergies: LANSOPRAZOLE (Unverified Allergy, Severe, 01/11/13) BROMFENAC (Verified Allergy, Unknown, 12/03/08) DICLOFENAC (Verified Allergy, Unknown, 12/03/08) FENOPROFEN (Verified Allergy, Unknown, 12/03/08) FLURBIPROFEN (Verified Allergy, Unknown, 12/03/08) IBUPROFEN (Verified Allergy, Unknown, 12/03/08) INDOMETHACIN (Verified Allergy, Unknown, 12/03/08) KETOROLAC (Verified Allergy, Unknown, 12/03/08) MISOPROSTOL (Verified Allergy, Unknown, 12/03/08) MORPHINE (Verified Allergy, Unknown, 12/03/08) NAPROXEN (Verified Allergy, Unknown, 12/03/08) PIROXICAM (Verified Allergy, Unknown, 12/03/08) SULINDAC (Verified Allergy, Unknown, 12/03/08) Uncoded Allergies: NSAIDS (Allergy, Unknown, 11/24/17) Objective Vital Signs Last 24 Hour Vital Signs Date Time Temp Pulse Resp B/P (MAP) Pulse Ox O2 Delivery O2 Flow Rate FiO2 11/28/17 08:48 72 148/77 11/28/17 08:00 72 11/28/17 08:00 98.4 72 18 148/77 100 Nasal Cannula 2.0 98.4 11/28/17 06:59 Nasal Cannula 11/28/17 06:51 100 Nasal Cannula 2.0 28 11/28/17 06:51 Nasal Cannula 2.0 28 11/28/17 06:49 73 18 100 Nasal Cannula 2.0 28 11/28/17 04:00 98.2 80 20 133/81 100 Nasal Cannula 2.0 98.2 11/28/17 04:00 71 11/28/17 03:27 Nasal Cannula 11/28/17 03:26 Nasal Cannula 11/28/17 00:00 98.4 67 28 141/81 99 Nasal Cannula 2.0 98.4 11/27/17 23:32 Nasal Cannula 11/27/17 23:31 Nasal Cannula 11/27/17 22:07 70 135/79 11/27/17 20:00 98.2 72 24 135/79 99 Nasal Cannula 2.0 98.2 11/27/17 20:00 70 11/27/17 19:50 Nasal Cannula 11/27/17 19:50 Nasal Cannula 11/27/17 19:00 Nasal Cannula 2.0 28 11/27/17 19:00 99 Nasal Cannula 2.0 28 11/27/17 16:00 97.5 68 18 112/61 100 Nasal Cannula 2.0 97.5 11/27/17 16:00 66 11/27/17 15:44 Nasal Cannula 11/27/17 15:44 Nasal Cannula 11/27/17 12:15 98.2 80 20 116/60 100 Nasal Cannula 2.0 98.2 11/27/17 12:00 71 11/27/17 11:30 Nasal Cannula 11/27/17 11:30 Nasal Cannula Height (Feet): 5 Height (Inches): 8.00 Weight (Pounds): 196 General Appearance: no acute distress HEENT: mucous membranes moist Respiratory/Chest: other - few rhonchi Cardiovascular: normal rate Abdomen: soft, non tender, other - GT feeding Extremities: no edema Neurologic/Psychiatric: alert, responsive, other - R hemiplegia Laboratory Tests Test 11/28/17 04:54 White Blood Count 5.6 K/UL (4.8-10.8) Red Blood Count 3.32 M/UL (4.20-5.40) L Hemoglobin 11.0 G/DL (12.0-16.0) L Hematocrit 33.1 % (37.0-47.0) L Mean Corpuscular Volume 100 FL (80-99) H Mean Corpuscular Hemoglobin 33.0 PG (27.0-31.0) H Mean Corpuscular Hemoglobin Concent 33.2 G/DL (32.0-36.0) Red Cell Distribution Width 12.4 % (11.6-14.8) Platelet Count 235 K/UL (150-450) Mean Platelet Volume 5.3 FL (6.5-10.1) L Neutrophils (%) (Auto) 75.5 % (45.0-75.0) H Lymphocytes (%) (Auto) 9.2 % (20.0-45.0) L Monocytes (%) (Auto) 8.7 % (1.0-10.0) Eosinophils (%) (Auto) 6.0 % (0.0-3.0) H Basophils (%) (Auto) 0.5 % (0.0-2.0) Sodium Level 135 MMOL/L (136-145) L Potassium Level 3.9 MMOL/L (3.5-5.1) Chloride Level 99 MMOL/L (98-107) Carbon Dioxide Level 29 MMOL/L (21-32) Anion Gap 7 mmol/L (5-15) Blood Urea Nitrogen 20 mg/dL (7-18) H Creatinine 0.8 MG/DL (0.55-1.30) Estimat Glomerular Filtration Rate mL/min (>60) Glucose Level 111 MG/DL (74-106) H Calcium Level 9.1 MG/DL (8.5-10.1) Magnesium Level 2.4 MG/DL (1.8-2.4) Total Bilirubin 0.3 MG/DL (0.2-1.0) Aspartate Amino Transf (AST/SGOT) 39 U/L (15-37) H Alanine Aminotransferase (ALT/SGPT) 39 U/L (12-78) Alkaline Phosphatase 145 U/L (46-116) H Total Protein 7.2 G/DL (6.4-8.2) Albumin 2.3 G/DL (3.4-5.0) L Globulin 4.9 g/dL Albumin/Globulin Ratio 0.5 (1.0-2.7) L Current Medications Medications (Trade) Dose Ordered Sig/Donell Route PRN Reason Start Time Stop Time Status Last Admin Dose Admin Acetaminophen/ Hydrocodone Bitart (Farnam 5/325) 1 tab Q4H PRN GT Moderate Pain (Pain Scale 4-6) 11/27/17 13:00 12/03/17 08:59 11/28/17 08:50 Albuterol/ Ipratropium (Albuterol/ Ipratropium) 3 ml Q4HRT HHN 11/27/17 15:00 11/29/17 22:59 11/28/17 06:49 Amiodarone HCl (Cordarone) 200 mg DAILY GT 11/28/17 09:00 7/18/18 08:59 11/28/17 08:47 Aspirin (ASA) 81 mg DAILY ORAL 11/28/17 09:00 12/25/17 08:59 11/28/17 08:49 Bisacodyl (Dulcolax) 10 mg DAILYPRN PRN RECTAL Constipation 11/27/17 13:30 12/27/17 13:29 Docusate Sodium (Colace) 100 mg TID GT 11/27/17 13:00 12/25/17 08:59 11/28/17 08:47 Duloxetine HCl (Cymbalta) 30 mg DAILY ORAL 11/28/17 09:00 12/25/17 08:59 11/28/17 08:49 Famotidine (Pepcid) 20 mg BID GT 11/27/17 18:00 12/25/17 17:59 11/28/17 08:48 Folic Acid (Folate) 1 mg DAILY GT 11/28/17 09:00 12/25/17 08:59 11/28/17 08:47 Gabapentin (Neurontin) 900 mg Q8HR GT 11/27/17 14:00 12/26/17 13:59 11/28/17 06:21 Heparin Sodium (Porcine) (Heparin 5000 units/ml) 5,000 units EVERY 12 HOURS SUBQ 11/27/17 21:00 12/25/17 08:59 11/28/17 08:51 Lactobacillus Acidophilus (Culturelle) 1 tab DAILY GT 11/28/17 09:00 12/25/17 08:59 11/28/17 08:47 Levothyroxine Sodium (Synthroid) 50 mcg DAILY@0630 GT 11/28/17 06:30 12/25/17 06:29 11/28/17 06:21 Metoprolol Tartrate (Lopressor) 25 mg Q12HR GT 11/27/17 21:00 12/26/17 20:59 11/28/17 08:48 Multivitamins (Multivitamins W/ Minerals 15ml Liquid) 5 ml DAILY GT 11/28/17 09:00 12/25/17 08:59 11/28/17 08:48 Piperacillin Sod/ Tazobactam Sod 3.375 gm/Dextrose 110 ml @ 27.5 mls/hr Q8HR IVPB 11/27/17 14:00 12/04/17 13:59 11/28/17 06:22 Zinc Sulfate (Zinc Sulfate) 220 mg DAILY GT 11/28/17 09:00 12/25/17 08:59 11/28/17 08:49 Moris Jefferson MD Nov 28, 2017 10:46
[2017-11-28 12:00] VITALS: BP 142/88
--- NOTE | 2017-11-28 20:15 | Discharge Summary ---
DATE OF ADMISSION: 11/24/2017 DATE OF DISCHARGE: 11/28/2017 ADMISSION DIAGNOSES: 1. Respiratory failure. 2. Pneumonia. 3. History of stroke. 4. History of paroxysmal atrial fibrillation. 5. Seizure disorder. 6. History of GI bleed. 7. History of trigeminal neuralgia. 8. Hypothyroidism. 9. Hypertensive heart disease. DISCHARGE DIAGNOSES: 1. Respiratory failure. 2. Pneumonia. 3. History of stroke. 4. History of paroxysmal atrial fibrillation. 5. Seizure disorder. 6. History of GI bleed. 7. History of trigeminal neuralgia. 8. Hypothyroidism. 9. Hypertensive heart disease. HOSPITAL COURSE: The patient is a pleasant female with complaints of shortness of breath secondary to pneumonia. She was initially on BiPAP. She received respiratory treatments, broad-spectrum antibiotics. She improved with antibiotic therapy. Hospital course is complicated by exacerbation of trigeminal neuralgia. Her pain was controlled mostly with oral medications. On discharge she was stable. Her x-ray is improving. She will be discharged back to [facility] facility. She will complete an additional 7 days of IV antibiotic therapy for pneumonia. DISCHARGE MEDICATIONS: Please see discharge list discharge medications. DIET: G-tube feedings. ACTIVITIES: Ad-rocky. FOLLOWUP: The patient to follow up in one to two days at [facility] facility. Omar Fournier M.D. DR: RUBÉN JOB#: [id number] CC:
--- NOTE | 2017-11-29 02:44 | Progress Note ---
DATE: 11/28/2017 CARDIOLOGY PROGRESS NOTE SUBJECTIVE: Pain is controlled. No shortness of breath. No chest pain. No palpitations. OBJECTIVE: VITAL SIGNS: Blood pressure 148/77, pulse 72, respirations 18, afebrile. HEENT: Slight facial asymmetry. LUNGS: Clear. CARDIAC: Regular rhythm and rate. Normal S1, S2. ABDOMEN: Soft. EXTREMITIES: No edema. NEUROLOGIC: Left hemiparesis. LABORATORY DATA: White count 5.6, hemoglobin 11. Sodium is 135, potassium 3.9, bicarbonate 29, BUN 20, and creatinine 0.8. Albumin 2.3. IMPRESSION: 1. Recovered sepsis. 2. Severe protein-calorie malnutrition. 3. Trigeminal neuralgia with chronic pain. 4. Cerebrovascular accident with left-sided weakness. 5. Hypertensive heart disease. 6. Chronic diastolic congestive heart failure. 7. Paroxysmal atrial fibrillation. 8. Implanted event recorder, nonfunctional. PLAN: 1. Discharging to [facility] facility is cleared from cardiovascular standpoint. 2. Antimicrobials. 3. Maintain adequate hydration and nutrition with protein supplement by G-tube. 4. Symptom-guided pain control. 5. Maintenance dose amiodarone. 6. Discharge medication regimen reviewed for transfer to [facility] facility. Ayo Leone M.D. DR: Patrick JOB#: [id number] CC:
== END 2017-11-28 14:44 | DRG 871 ==
LOC: EDBD 14:54 → EMR 15:51 → EDBEDREQ 16:18 → 2W 19:37 → 2E 11-27 12:10
PROC: 5A09357 Assistance with Respiratory Ventilation, Less than 24 Consecutive Hours, Continuous Positive Airway Pressure (ICD-10-PCS; principal; 2017-11-24)
DX: A41.9 Sepsis, unspecified organism (principal); J69.0 Pneumonitis due to inhalation of food and vomit; J96.90 Respiratory failure, unspecified, unspecified whether with hypoxia or hypercapnia; E43 Unspecified severe protein-calorie malnutrition; E87.1 Hypo-osmolality and hyponatremia; I69.351 Hemiplegia and hemiparesis following cerebral infarction affecting right dominant side; Z43.1 Encounter for attention to gastrostomy; I50.32 Chronic diastolic (congestive) heart failure; Z87.891 Personal history of nicotine dependence; I48.0 Paroxysmal atrial fibrillation; G50.0 Trigeminal neuralgia; E03.9 Hypothyroidism, unspecified; J44.9 Chronic obstructive pulmonary disease, unspecified; E11.9 Type 2 diabetes mellitus without complications; K21.9 Gastro-esophageal reflux disease without esophagitis; R13.10 Dysphagia, unspecified; I11.0 Hypertensive heart disease with heart failure; Z95.0 Presence of cardiac pacemaker; F03.90 Unspecified dementia, unspecified severity, without behavioral disturbance, psychotic disturbance, mood disturbance, and anxiety; Z88.8 Allergy status to other drugs, medicaments and biological substances; Z88.6 Allergy status to analgesic agent; G89.29 Other chronic pain; E87.6 Hypokalemia
CPT/HCPCS: 36415; 36600; 71045; 80053; 81003; 82550; 82553; 82803; 83605; 83735; 83880; 84100; 84484; 85025; 87040; 87081; 87086; 87181; 93005; 94640; 94660; 94664; 94760; 99285; J7620; J8499

== ENCOUNTER 2018-11-17 14:39 | Inpatient (IN) | payer MEDICARE, BC, MEDICAID ==
[~2018-11-17] VITALS: Ht 172.7 cm; Wt 86.2 kg
[~2018-11-17 14:39] MED LIST changes: +ALBUTEROL2.5 MG/3 M INH; +FLORANEX TABLE1 EAC1 GT; +ISOPTO TEARS15 ML OP; +LOPERAMIDE1 MG/5 ML GT; +Milk of Magnesia 30ml Ud ORAL PRN; +NORCO 5-325 TA1 EACH GT; +ONDANSETRON HCL4 M1 GT; +OXYCODONE H5 MG/5 ML GT; -Vancomycin 1.5gm/D5W 250ml 250 ML IVPB SCH; +ZINC SULFATE220 M1 GT; +ZOSYN 3.373.375 GM/1 IVPB
[2018-11-17 14:45] VITALS: BP 102/53
[2018-11-17] MEDS ORDERED: ATORVASTATIN CA20 MG GT (14:47)
[2018-11-17] MEDS ORDERED: CYMBALTA30 MG GT (14:47)
--- NOTE | 2018-11-17 15:45 | Emergency Room Report ---
History of Present Illness General Chief Complaint: Altered Level of Consciousness Source: Patient, Medical Record Present Illness HPI This patient presents from a longterm facility. There was concern from the staff that the patient had altered mental status. The patient has a history of CVA with G-tube placement and dysphagia, A. fib, CHF, GERD, hypertension. The patient herself complains of right knee pain. Allergies: Coded Allergies: LANSOPRAZOLE (Unverified Allergy, Severe, 01/11/13) BROMFENAC (Verified Allergy, Unknown, 12/03/08) DICLOFENAC (Verified Allergy, Unknown, 12/03/08) FENOPROFEN (Verified Allergy, Unknown, 12/03/08) FLURBIPROFEN (Verified Allergy, Unknown, 12/03/08) IBUPROFEN (Verified Allergy, Unknown, 12/03/08) INDOMETHACIN (Verified Allergy, Unknown, 12/03/08) KETOROLAC (Verified Allergy, Unknown, 12/03/08) MISOPROSTOL (Verified Allergy, Unknown, 12/03/08) MORPHINE (Verified Allergy, Unknown, 12/03/08) NAPROXEN (Verified Allergy, Unknown, 12/03/08) PIROXICAM (Verified Allergy, Unknown, 12/03/08) SULINDAC (Verified Allergy, Unknown, 12/03/08) Uncoded Allergies: NSAIDS (Allergy, Unknown, 11/24/17) Patient History Past Medical History: see triage record, old chart reviewed, HTN, ID, CAD, CHF , AFib, COPD, GERD, CVA/TIA, seizures Past Surgical History: other - G-tube Social History: Denies: smoking, alcohol use, drug use Reviewed Nursing Documentation: PMH: Agreed; PSxH: Agreed Nursing Documentation-PMH Past Medical History: No History, Except For Hx Cardiac Problems: Yes - heart failure Hx Hypertension: Yes Hx Pacemaker: Yes Hx Asthma: Yes Hx COPD: Yes Hx Diabetes: Yes Hx Cancer: No Hx Gastrointestinal Problems: Yes - g tube GERD Hx Neurological Problems: Yes - partial hemiparesis Hx Cerebrovascular Accident: Yes Hx Dementia: Yes Hx Seizures: Yes Hx Peripheral Neuropathy: Yes Hx Weakness: Yes - RIGHT SIDED Review of Systems All Other Systems: negative except mentioned in HPI Physical Exam Vital Signs Date Time Temp Pulse Resp B/P (MAP) Pulse Ox O2 Delivery O2 Flow Rate FiO2 11/17/18 14:39 98.1 77 14 104/63 (77) 98 Room Air Sp02 EP Interpretation: reviewed, normal General Appearance: no apparent distress, alert, GCS 15, non-toxic Head: normocephalic, atraumatic Eyes: bilateral eye normal inspection, bilateral eye PERRL ENT: hearing grossly normal, normal pharynx, no angioedema, normal voice Neck: full range of motion, supple/symm/no masses Respiratory: chest non-tender, lungs clear, normal breath sounds, no respiratory distress, no retraction, no accessory muscle use, speaking full sentences Cardiovascular #1: regular rate, rhythm, no edema Gastrointestinal: normal bowel sounds, non tender, soft, non-distended, no guarding, no rebound, other - G-tube in place Rectal: deferred Musculoskeletal: normal range of motion, non-tender Neurologic: alert, responsive, speech normal, grossly normal Psychiatric: judgement/insight normal, mood/affect normal, no suicidal/ homicidal ideation Skin: warm/dry, well hydrated, other - See RN skin exam Medical Decision Making Diagnostic Impression: Primary Impression: Seizure Additional Impression: Fecal impaction in rectum ER Course Patient had a work-up here in the emergency department that was negative. However, I was able to speak with her primary care physician who reports that she has a history of seizures. He states that she had been at [facility] as her J-tube had gotten dislodged. She recently got a new J-tube. There was concern today that the patient was unresponsive at the longterm facility and diaphoretic. The primary care physician noted that she probably had a seizure as she was not receiving her seizure medications secondary to the J- tube difficulties. In the emergency department here she was alert and appropriate and I did have a negative work-up. However, given recent unresponsive episode was possibly a seizure, I will admit this patient observation to assess for breakthrough seizures. The patient is admitted. Laboratory Tests Test 11/17/18 15:10 11/17/18 15:50 White Blood Count 7.6 K/UL (4.8-10.8) Red Blood Count 4.05 M/UL (4.20-5.40) L Hemoglobin 12.9 G/DL (12.0-16.0) Hematocrit 39.5 % (37.0-47.0) Mean Corpuscular Volume 97 FL (80-99) Mean Corpuscular Hemoglobin 31.9 PG (27.0-31.0) H Mean Corpuscular Hemoglobin Concent 32.8 G/DL (32.0-36.0) Red Cell Distribution Width 13.6 % (11.6-14.8) Platelet Count 277 K/UL (150-450) Mean Platelet Volume 4.6 FL (6.5-10.1) L Neutrophils (%) (Auto) 78.4 % (45.0-75.0) H Lymphocytes (%) (Auto) 12.2 % (20.0-45.0) L Monocytes (%) (Auto) 4.8 % (1.0-10.0) Eosinophils (%) (Auto) 3.6 % (0.0-3.0) H Basophils (%) (Auto) 1.0 % (0.0-2.0) Sodium Level 137 MMOL/L (136-145) Potassium Level 3.4 MMOL/L (3.5-5.1) L Chloride Level 101 MMOL/L (98-107) Carbon Dioxide Level 31 MMOL/L (21-32) Anion Gap 5 mmol/L (5-15) Blood Urea Nitrogen 11 mg/dL (7-18) Creatinine 0.8 MG/DL (0.55-1.30) Estimate Glomerular Filtration Rate mL/min (>60) Glucose Level 99 MG/DL (74-106) Lactic Acid Level 1.80 mmol/L (0.4-2.0) Calcium Level 8.9 MG/DL (8.5-10.1) Total Bilirubin 0.2 MG/DL (0.2-1.0) Aspartate Amino Transferase (AST) 19 U/L (15-37) Alanine Aminotransferase (ALT) 17 U/L (12-78) Alkaline Phosphatase 171 U/L (46-116) H Total Creatine Kinase 20 U/L (26-308) L Creatine Kinase MB 0.5 NG/ML (0.0-3.6) Creatine Kinase MB Relative Index 2.5 Troponin I 0.000 ng/mL (0.000-0.056) Total Protein 6.8 G/DL (6.4-8.2) Albumin 2.4 G/DL (3.4-5.0) L Globulin 4.4 g/dL Albumin/Globulin Ratio 0.5 (1.0-2.7) L Urine Color Pale yellow Urine Appearance Cloudy Urine pH 6 (4.5-8.0) Urine Specific [place] 1.005 (1.005-1.035) Urine Protein Negative (NEGATIVE) Urine Glucose (UA) Negative (NEGATIVE) Urine Ketones Negative (NEGATIVE) Urine Blood 1+ (NEGATIVE) H Urine Nitrite Negative (NEGATIVE) Urine Bilirubin Negative (NEGATIVE) Urine Urobilinogen Normal MG/DL (0.0-1.0) Urine Leukocyte Esterase 2+ (NEGATIVE) H Urine RBC 0-2 /HPF (0 - 2) Urine WBC 5-10 /HPF (0 - 2) H Urine Squamous Epithelial Cells Many /LPF (NONE/OCC) H Urine Bacteria Many /HPF (NONE) H EKG Diagnostic Results Rate: normal Rhythm: NSR ST Segments: no acute changes Rhythm Strip Diag. Results EP Interpretation: yes Rate: 70's Rhythm: NSR, no PVC's, no ectopy Chest X-Ray Diagnostic Results Chest X-Ray Diagnostic Results : Chest X-Ray Ordered: Yes # of Views/Limited/Complete: 1 View Indication: Other EP Interpretation: Yes Interpretation: no consolidation, no effusion, no pneumothorax, no acute cardiopulmonary disease Impression: No acute disease Electronically Signed by: Kemi Sidhu DO Other X-Ray Diagnostic Results Other X-Ray Diagnostic Results : X-Ray ordered: R. hip, R. knee # of Views/Limited Vs Complete: Complete Indication: Pain EP Interpretation: No Interpretation: no fractures Impression: No acute disease Electronically Signed by: Valarie Sidhu DO Last Vital Signs Date Time Temp Pulse Resp B/P (MAP) Pulse Ox O2 Delivery O2 Flow Rate FiO2 11/17/18 14:45 98.2 73 13 102/53 98 Room Air Status: improved Disposition: ADMITTED INPATIENT Condition: Stable Referrals: Omar Fournier MD (PCP) Valarie Sidhu DO Nov 17, 2018 15:45
[2018-11-17 15:53] LABS: EOSINOPHILS % (AUTO) 3.6 % (0.0-3.0); HEMATOCRIT 39.5 % (37.0-47.0); HEMOGLOBIN 12.9 G/DL (12.0-16.0); LYMPHOCYTES % (AUTO) 12.2 % (20.0-45.0); MEAN CORPUSCULAR VOLUME 97 FL (80-99); MONOCYTES % (AUTO) 4.8 % (1.0-10.0); NEUTROPHILS % (AUTO) 78.4 % (45.0-75.0); PLATELET COUNT 277 K/UL (150-450); RED BLOOD COUNT 4.05 M/UL (4.20-5.40); RED CELL DISTRIBUTION WIDTH 13.6 % (11.6-14.8); WHITE BLOOD COUNT 7.6 K/UL (4.8-10.8)
--- NOTE | 2018-11-17 16:02 | Diagnostic Imaging Report ---
Indication: Dyspnea Comparison: None A single view chest radiograph was obtained. Findings: No definite infiltrate or pulmonary vascular congestion identified. The left hemidiaphragm is elevated. The heart is enlarged. The aorta is mildly enlarged consistent with atherosclerotic vascular disease. The bones are osteopenic. Impression: No acute disease
[2018-11-17 16:03] LABS: APPEARANCE,URINE CLOUDY; BILIRUBIN, URINE NEGATIVE (NEGATIVE); COLOR,URINE PALE YELLOW; GLUCOSE, URINE (UA) NEGATIVE (NEGATIVE); KETONES,URINE NEGATIVE (NEGATIVE); LEUKOCYTE ESTERASE ,URINE 2+ (NEGATIVE); NITRITE,URINE NEGATIVE (NEGATIVE); PH,URINE 6 (4.5-8.0); PROTEIN,URINE NEGATIVE (NEGATIVE); UROBILINOGEN,URINE NORMAL MG/DL (0.0-1.0)
[2018-11-17 16:04] LABS: ANION GAP 5 mmol/L (5-15); BLOOD UREA NITROGEN 11 mg/dL (7-18); CALCIUM 8.9 MG/DL (8.5-10.1); CARBON DIOXIDE 31 MMOL/L (21-32); CHLORIDE 101 MMOL/L (98-107); CREATININE 0.8 MG/DL (0.55-1.30); POTASSIUM 3.4 MMOL/L (3.5-5.1); SODIUM 137 MMOL/L (136-145)
[2018-11-17 16:18] LABS: ALANINE AMINOTRANSFERASE 17 U/L (12-78); ALBUMIN 2.4 G/DL (3.4-5.0); ALBUMIN/GLOBULIN RATIO 0.5 (1.0-2.7); ALKALINE PHOSPHATASE 171 U/L (46-116); ASPARTATE AMINO TRANSFERASE 19 U/L (15-37); BILIRUBIN,TOTAL 0.2 MG/DL (0.2-1.0); CKMB 0.5 NG/ML (0.0-3.6); CREATINE KINASE 20 U/L (26-308)
[2018-11-17 16:46] VITALS: BP 122/59
--- NOTE | 2018-11-17 17:06 | Diagnostic Imaging Report ---
Indications: hip pain Findings: Two views of the right hip were obtained. Right hip hemiarthroplasty demonstrated. Bones are osteopenic. No obvious acute fracture identified. However the study is technically limited. Vascular calcifications are noted. Moderate stool impacted in the distal sigmoid colon and rectum. IMPRESSION: Bipolar right hip replacement. No obvious acute injury. Technically limited examination Fecal impaction
--- NOTE | 2018-11-17 17:09 | Diagnostic Imaging Report ---
Indication: Pain Knee pain/trauma 3 views of the right knee were obtained. Findings: There is severe osteoporosis. No acute fracture is identified. There is arthrosis with narrowing and osteophyte formation in all 3 compartments. Extensive femoral artery and popliteal calcification noted. IMPRESSION: No obvious acute injury. Severe osteoporosis
[2018-11-17 19:00] VITALS: BP 145/68
[2018-11-17 20:52] VITALS: BP 138/72
[2018-11-17 21:48] VITALS: BP 136/78
[2018-11-17] MEDS ORDERED: Lactulose 20gm/30ml UDC GT PRN ×2 (23:15)
[2018-11-17] MEDS ORDERED: Ipratropium 0.02% Inh Soln 2.5ml UD HHN PRN (23:15)
[2018-11-17] MEDS ORDERED: HYDROcodone/Acetamin 5/325 tab GT PRN (23:15)
[2018-11-17] MEDS ORDERED: Albuterol ud Inhalation HHN PRN (23:15)
[2018-11-17] MEDS ORDERED: guaiFENesin 100mg/5ml Liq ud ORAL PRN (23:15)
[2018-11-17] MEDS ORDERED: Bisacodyl EC 5mg tab ORAL PRN (23:15)
[2018-11-18] VITALS (7 sets, daily range): BP systolic 113–134; BP diastolic 59–91
[2018-11-18] MEDS ORDERED: NovoLOG Insulin Flexpen SUBQ SCH
[2018-11-18] MEDS ORDERED: Ertapenem (INVanz) 1gm Inj IM SCH ×2 (00:15)
[2018-11-18] MEDS ORDERED: Levothyroxine 25mcg tab GT SCH (06:30)
[2018-11-18] MEDS ORDERED: Albuterol/Ipratropium 3ml neb HHN PRN (07:45)
[2018-11-18] MEDS: carBAMazepine 200mg tab GT SCH ×3 (08:57→17:03)
[2018-11-18] MEDS: Ascorbic Acid 500mg tab GT SCH (08:58)
[2018-11-18] MEDS: Aspirin EC 81mg tab ORAL SCH (08:59)
[2018-11-18] MEDS ORDERED: Lidocaine 1% MPF 10mg/ml 5ml INJ SCH (09:00)
[2018-11-18] MEDS ORDERED: DULoxetine 30mg cap ORAL SCH (09:00)
[2018-11-18] MEDS: Amiodarone 200mg tab GT SCH (09:00)
[2018-11-18] MEDS: Zinc Sulfate 220mg cap GT SCH (09:02)
[2018-11-18] MEDS: DULoxetine 30mg cap ORAL SCH (09:02)
[2018-11-18] MEDS: Docusate 100mg cap ORAL SCH ×3 (09:03→17:03)
[2018-11-18] MEDS: Ferrous Sulfate 300 MG/5 ML UDC ORAL SCH (09:03)
[2018-11-18] MEDS: Heparin 5000 units/ml inj SUBQ SCH ×2 (09:05→21:02)
[2018-11-18] MEDS: Metoprolol 25mg tab GT SCH ×2 (09:06→21:01)
[2018-11-18] MEDS ORDERED: Vancomycin 1.5gm Premix IVPB ONE (14:00)
--- NOTE | 2018-11-18 15:01 | Cardiology Report ---
APPROVED REPORT EKG Measurement Heart [id number] ID [id number] Normal sinus rhythm Possible Lateral infarct, age undetermined Abnormal ECG
--- NOTE | 2018-11-18 15:15 | History and Physical Report ---
DATE OF ADMISSION: 11/17/2018 CHIEF COMPLAINT: Altered mental status. HISTORY OF PRESENT ILLNESS: The patient is a 78-year-old female, well known to me. She has a history of stroke, seizure disorder with trigeminal neuralgia. She has a history of dysphagia, hip fracture, hypertension, and paroxysmal atrial fibrillation. She was recently hospitalized at an outside hospital with a dislodged G-tube. It was eventually replaced and the patient was discharged back to her long-term facility. The very next day after her readmission at the [facility], she was found confused, diaphoretic, and poorly responsive. She was sent to the emergency room. On evaluation there, she was awake and alert, and appeared close to her baseline. She currently only complains of facial pain consistent with her prior trigeminal neuralgia pain. She denies any fevers or chills. No headaches. No shortness of breath. PAST MEDICAL HISTORY: As above. PAST SURGICAL HISTORY: Includes history of a rhizotomy. CURRENT MEDICATIONS: Reconciled and reviewed. ALLERGIES: Include bromfenac, diclofenac, , ibuprofen, Indocin, Prevacid, and misoprostol. FAMILY HISTORY: Noncontributory. SOCIAL HISTORY: There is no known history of tobacco, ethanol, or drugs. REVIEW OF SYSTEMS: GENERAL: No fever or chills. HEENT: No headaches or visual changes. CARDIOPULMONARY: No chest pain or shortness of breath. GASTROINTESTINAL: No nausea or vomiting. GENITOURINARY: No urgency or frequency. MUSCULOSKELETAL: No joint pain or swelling. NEUROLOGIC: Positive history of seizures. Positive history of stroke. PHYSICAL EXAMINATION: VITAL SIGNS: Temperature 98 degrees, pulse 76, respirations 16, blood pressure 134/76. GENERAL: The patient is well developed, no apparent distress. HEART: Regular rate and rhythm. LUNGS: Clear. ABDOMEN: Soft, nontender, nondistended. EXTREMITIES: Without clubbing, cyanosis, or edema. The patient has some mild right-sided weakness, which is old. PERTINENT DATA: UA showed 5-10 wbc's. White count 7, hemoglobin 12. Sodium 137 and potassium is 3.4. ASSESSMENT AND PLAN: This is a pleasant female, admitted with complaints of altered mental status, now resolved, suspect the patient had a seizure. She likely did not receive all of her seizure medications at the outside hospital when her G-tube was not functioning. The patient appear stable and is at her baseline. We will transfer the patient back to the long-term facility. [id number] was discussed with the patient at the bedside and she is in agreement. Omar Fournier M.D. DR: MILVIA JOB#: [id number] CC:
[2018-11-18] MEDS ORDERED: PERCOCET 10-321 EACH GT (20:52)
[2018-11-19] VITALS: BP 118/60
[2018-11-19] MEDS ORDERED: Vancomycin 750mg/NS 275ml IVPB SCH ×2 (02:00)
[2018-11-19 04:00] VITALS: BP 118/68
[2018-11-19 08:00] VITALS: BP 124/66
[2018-11-19] MEDS: DULoxetine 30mg cap ORAL SCH (08:32)
[2018-11-19] MEDS: Docusate 100mg cap ORAL SCH ×2 (08:33→12:31)
[2018-11-19] MEDS: carBAMazepine 200mg tab GT SCH ×2 (08:33→12:31)
[2018-11-19] MEDS: Aspirin EC 81mg tab ORAL SCH (08:33)
[2018-11-19] MEDS: Amiodarone 200mg tab GT SCH (08:34)
[2018-11-19] MEDS: Zinc Sulfate 220mg cap GT SCH (08:34)
[2018-11-19] MEDS: Ascorbic Acid 500mg tab GT SCH (08:34)
[2018-11-19] MEDS: Metoprolol 25mg tab GT SCH (08:35)
[2018-11-19] MEDS: Ferrous Sulfate 300 MG/5 ML UDC ORAL SCH (08:38)
[2018-11-19] MEDS: Heparin 5000 units/ml inj SUBQ SCH (08:38)
[2018-11-19] MEDS ORDERED: ZOSYN 3.373.375 GM/1 IVPB (08:39)
[2018-11-19 12:00] VITALS: BP 115/55
[2018-11-19] MEDS ORDERED: Vancomycin 1.5gm Premix IVPB SCH (14:00)
--- NOTE | 2018-11-20 03:15 | Discharge Summary ---
DATE OF ADMISSION: 11/17/2018 DATE OF DISCHARGE: 11/19/2018 ADMISSION DIAGNOSES: 1. Seizures. 2. History of stroke. 3. Hypertension. 4. History of J-tube replacement. 5. Possible Escherichia coli urinary tract infection and bacteremia. HOSPITAL COURSE: The patient is a pleasant female, who was admitted with complaints of seizure. She did have her J-tube recently replaced and she likely did not receive her seizure medications or she likely may have missed a few doses. She had no further seizures while in-house. She did have blood cultures drawn and a urine culture that grew out E. coli. Blood cultures were also growing out gram-positive cocci. It is felt that these are likely a contaminants. Cultures were not back on the day of discharge, but the patient demanded to being discharged. Clinically, she was stable though she will be discharged with antibiotic therapy and her cultures will be followed up while she is at the detention. If they are negative, antibiotics will be discontinued. DISCHARGE MEDICATIONS: Please see discharge medication list for discharge medications. DIET: J-tube feedings. ACTIVITIES: Ad-rocky. Omar Fournier M.D. DR: GEOVANNA JOB#: [id number] CC:
== END 2018-11-19 13:35 | DRG 101 ==
LOC: EDBD 14:39 → EMR 15:00 → EDBEDREQ 18:52 → 2E 19:17 → EDBEDREQ 20:25 → 2E 23:43
DX: G40.909 Epilepsy, unspecified, not intractable, without status epilepticus (principal); N39.0 Urinary tract infection, site not specified; Z43.1 Encounter for attention to gastrostomy; I69.351 Hemiplegia and hemiparesis following cerebral infarction affecting right dominant side; G50.0 Trigeminal neuralgia; I10 Essential (primary) hypertension; I48.0 Paroxysmal atrial fibrillation; Z88.6 Allergy status to analgesic agent; Z88.8 Allergy status to other drugs, medicaments and biological substances; B96.20 Unspecified Escherichia coli [E. coli] as the cause of diseases classified elsewhere; R13.10 Dysphagia, unspecified
CPT/HCPCS: 36415; 71045; 80053; 81003; 82550; 82553; 82962; 83605; 84484; 85025; 87040; 87081; 87086; 87181; 93005; 94664; 99285